=== PATIENT | female | born 1985 | race Caucasian/White ===

== ENCOUNTER 2018-08-15 12:04 | Emergency (ER) | payer SELFPAY ==
[~2018-08-15] VITALS: Ht 167.6 cm; Wt 71.7 kg
--- NOTE | 2018-08-15 12:32 | PHYS DOC ---
Past History Past Medical History: Kidney Infection Past Surgical History: Tubal ligation Additional Smoking Information: 07/12 PPD Alcohol Use: None Drug Use: None Adult General Chief Complaint Chief Complaint: FLANK PAIN HPI HPI 33-year-old female presents with flank pain. The patient woke up this morning with significant flank pain that radiated across her back. She has had increased urinary frequency and dysuria since this morning. She has not had this level of pain before. She has had urinary tract infections in the past. She did not feel symptomatic at all yesterday. She has no history of kidney stones. She denies trauma. She has not had a fever or chills at home. Review of Systems Review of Systems Constitutional: Denies fever or chills [] Eyes: Denies change in visual acuity, redness, or eye pain [] HENT: Denies nasal congestion or sore throat [] Respiratory: Denies cough or shortness of breath [] Cardiovascular: No additional information not addressed in HPI [] GI: Denies abdominal pain, nausea, vomiting, bloody stools or diarrhea [] : Dysuria[] Musculoskeletal: Flank pain[] Integument: Denies rash or skin lesions [] Neurologic: Denies headache, focal weakness or sensory changes [] Endocrine: Denies polyuria or polydipsia [] All other systems were reviewed and found to be within normal limits, except as documented in this note. Physical Exam Physical Exam Constitutional: Well developed, well nourished, no acute distress, non-toxic appearance. Appears to be in pain, constantly moving [] HENT: Normocephalic, atraumatic, bilateral external ears normal, oropharynx moist, no oral exudates, nose normal. [] Eyes: PERRLA, EOMI, conjunctiva normal, no discharge. [] Neck: Normal range of motion, no tenderness, supple, no stridor. [] Cardiovascular:Heart rate regular rhythm, no murmur [] Lungs & Thorax: Bilateral breath sounds clear to auscultation [] Abdomen: Bowel sounds normal, soft, no tenderness, no masses, no pulsatile masses. [] Skin: Warm, dry, no erythema, no rash. [] Back: CVA tenderness. [] Extremities: No tenderness, no cyanosis, no clubbing, ROM intact, no edema. [] Neurologic: Alert and oriented X 3, normal motor function, normal sensory function, no focal deficits noted. [] Psychologic: Affect anxious, in pain, judgement normal, mood normal. [] Current Patient Data Vital Signs Vital Signs Date Time Temp Pulse Resp B/P (MAP) Pulse Ox O2 Delivery O2 Flow Rate FiO2 08/15/18 12:13 112 22 98 Room Air EKG EKG [] Radiology/Procedures Radiology/Procedures [] Impressions: Examination: CT of the abdomen pelvis without contrast HISTORY: History of left flank pain COMPARISON: None available TECHNIQUE: Axial CT images of the abdomen pelvis were performed without contrast. Coronal and sagittal reformats are performed . Exposure: One or more of the following individualized dose reduction techniques were utilized for this examination: 1. Automated exposure control 2. Adjustment of the mA and/or kV according to patient size 3. Use of iterative reconstruction technique FINDINGS: The bibasilar lungs are clear. No evidence of free air identified in the abdomen. The evaluation of the solid organs is limited due to lack of IV contrast. The evaluation of bowel is limited lack of oral contrast. The visualized noncontrasted liver, spleen, adrenals grossly appears unremarkable. The gallbladder is mildly distended. The stomach is mildly distended. The visualized pancreas grossly appears unremarkable. The small bowel is nondilated. Appendix is normal. Feces and gas noted in the colon. The urinary bladder is mildly distended. Small amount of fluid identified in the endometrium of the uterus. Moderate left-sided hydronephrosis and proximal mild hydroureter identified with a calculus identified in the proximal left ureter measuring 4 mm. Small calcified pelvic phleboliths identified in the pelvis. No evidence of lytic bony destructive lesion. IMPRESSION: 1. 4 mm calculus identified in the proximal left ureter causing mild to moderate left-sided hydronephrosis and mild left hydroureter. 2. Small amount of fluid identified in the endometrium, nonspecific. Electronically signed by: Candido Winters MD (08/15/2018 12:56 PM) [place] [id number] DICTATED AND SIGNED BY: CANDIDO WINTERS MD DATE: 08/15/18 5001 CC: CARYN SIMMONS DO; PCP,NO Course & Med Decision Making Course & Med Decision Making Pertinent Labs and Imaging studies reviewed. (See chart for details) The patient has a UTI as well as a kidney stone and hydronephrosis. I will treat her in the ED with 2 g of Rocephin IV. I will consult urology. The patient has a normal blood pressure, white count of 10.1, and no fever. She is not septic. I discussed the case with the urology team and spoke with Freda the nurse practitioner. She has recommended transferring the patient to [place]. Discussed the patient with the hospitalist at [facility], Dr. Serrato and he has accepted the patient for transfer and admission. The patient strongly wishes to go by personal vehicle. She does not have insurance and cannot afford the ambulance bill. Given that she is hemodynamically stable, has no fever, and understands we will have her move her IV and a normal be placed later, I will allow her to go by personal vehicle. She is being driven by her significant other. [] Dragon Disclaimer Dragon Disclaimer This electronic medical record was generated, in whole or in part, using a voice recognition dictation system. Departure Departure: Impression: Primary Impression: Kidney stone on left side Additional Impressions: Hydronephrosis of left kidney Pyelonephritis Disposition: XFER SHT-TRM HOSP Condition: STABLE Referrals: PCP,NO (PCP) Problem Qualifiers CARYN SIMMONS DO Aug 15, 2018 12:32
[2018-08-15] MEDS ORDERED: KETOROLAC 30 MG/ML VIAL. IV ONE (12:45)
[2018-08-15] MEDS ORDERED: ONDANSETRON PF 4 MG/2 ML VIAL. IV ONE (12:45)
[2018-08-15 12:48] LABS: BASO # 0.1 x10^3/uL (0.0-0.2); BASO % 1 % (0-3); EOS # 0.4 x10^3/uL (0.0-0.7); EOS % 4 % (0-3); HEMATOCRIT 43.4 % (36.0-47.0); HEMOGLOBIN 14.4 g/dL (12.0-15.5); LYMPH # 2.5 x10^3/uL (1.0-4.8); LYMPH % 25 % (24-48); MEAN CORPUSCULAR HEMOGLOBIN 30 pg (25-35); MEAN CORPUSCULAR HGB CONC 33 g/dL (31-37); MEAN CORPUSCULAR VOLUME 89 fL (79-100); MONO # 1.1 x10^3/uL (0.0-1.1); MONO % 11 % (0-9); NEUT # 6.1 x10^3uL (1.8-7.7); NEUT % 60 % (31-73); PLATELET COUNT 380 x10^3/uL (140-400); RED BLOOD COUNT 4.87 x10^6/uL (3.50-5.40); RED CELL DISTRIBUTION WIDTH 13.6 % (11.5-14.5); WHITE BLOOD COUNT 10.1 x10^3/uL (4.0-11.0)
[2018-08-15 12:56] LABS: BILIRUBIN,URINE NEG (NEG); CLARITY,URINE TURBID; COLOR,URINE YELLOW; GLUCOSE,URINE NEG (NEG); NITRITE,URINE POS (NEG); UROBILINOGEN,URINE 0.2 mg/dL (0.2 mg/dL)
[2018-08-15 12:57] LABS: AMORPHOUS SEDIMENT,UR PRESENT /HPF; BACTERIA,URINE MANY /HPF (0-FEW); SQUAMOUS EPITHELIAL CELL,UR FEW /LPF
[2018-08-15 12:59] LABS: ALBUMIN 3.9 g/dL (3.4-5.0); ALBUMIN/GLOBULIN RATIO 1.1 (1.0-1.7); CALCIUM 9.1 mg/dL (8.5-10.1); CREATININE 0.9 mg/dL (0.6-1.0); GFR 72.1; TOTAL BILIRUBIN 0.2 mg/dL (0.2-1.0); TOTAL PROTEIN 7.4 g/dL (6.4-8.2)
--- NOTE | 2018-08-15 13:01 | RAD ---
Examination: CT of the abdomen pelvis without contrast HISTORY: History of left flank pain COMPARISON: None available TECHNIQUE: Axial CT images of the abdomen pelvis were performed without contrast. Coronal and sagittal reformats are performed . Exposure: One or more of the following individualized dose reduction techniques were utilized for this examination: 1. Automated exposure control 2. Adjustment of the mA and/or kV according to patient size 3. Use of iterative reconstruction technique FINDINGS: The bibasilar lungs are clear. No evidence of free air identified in the abdomen. The evaluation of the solid organs is limited due to lack of IV contrast. The evaluation of bowel is limited lack of oral contrast. The visualized noncontrasted liver, spleen, adrenals grossly appears unremarkable. The gallbladder is mildly distended. The stomach is mildly distended. The visualized pancreas grossly appears unremarkable. The small bowel is nondilated. Appendix is normal. Feces and gas noted in the colon. The urinary bladder is mildly distended. Small amount of fluid identified in the endometrium of the uterus. Moderate left-sided hydronephrosis and proximal mild hydroureter identified with a calculus identified in the proximal left ureter measuring 4 mm. Small calcified pelvic phleboliths identified in the pelvis. No evidence of lytic bony destructive lesion. IMPRESSION: 1. 4 mm calculus identified in the proximal left ureter causing mild to moderate left-sided hydronephrosis and mild left hydroureter. 2. Small amount of fluid identified in the endometrium, nonspecific. Electronically signed by: Candido Winters MD (08/15/2018 12:56 PM) [facility]
[2018-08-15] MEDS ORDERED: IV NORMAL SALINE 100ML 100 ML ONE (13:09)
[2018-08-15] MEDS ORDERED: IV NORMAL SALINE 1,000ML 1,000 ML IV ONE (13:30)
== END 2018-08-15 14:40 | disposition short-term general hospital (02) ==
LOC: ER 12:04
DX: N13.2 Hydronephrosis with renal and ureteral calculous obstruction (principal); N12 Tubulo-interstitial nephritis, not specified as acute or chronic; F17.200 Nicotine dependence, unspecified, uncomplicated; Z98.51 Tubal ligation status
CPT/HCPCS: 36415; 74176; 80053; 81001; 85025; 87086; 96365; 96375; 99285; J0696; J1885; J2405; 87186; J7030

== ENCOUNTER 2020-01-29 22:26 | Emergency (ER) | payer SELFPAY ==
[~2020-01-29] VITALS: Ht 167.6 cm; Wt 65.0 kg
--- NOTE | 2020-01-29 23:32 | RAD ---
EXAM: CHEST AP ONLY INDICATION: Reason: SOB, cough / Spl. Instructions: / History: . TECHNIQUE: Single view COMPARISON: Abdomen pelvis CT without IV contrast 08/15/2018. FINDINGS: The heart size is normal. The great vessels appear unremarkable. There is no hilar or mediastinal mass. The lungs are clear. There is no pleural effusion or pneumothorax. There are no significant osseous abnormalities. IMPRESSION: No active cardiopulmonary disease. Electronically signed by: Sarah Murray MD (01/29/2020 11:29 PM) [facility] [place]
[2020-01-29] MEDS ORDERED: ACETAMINOPHEN 325 MG TABLET PO ONE (23:45)
[2020-01-29] MEDS ORDERED: IV NORMAL SALINE 1,000ML 1,000 ML IV ONE (23:45)
[2020-01-30 00:14] LABS: BASO % 0 % (0-3); EOS # 0.1 x10^3/uL (0.0-0.7); EOS % 1 % (0-3); HEMATOCRIT 40.5 % (36.0-47.0); HEMOGLOBIN 13.3 g/dL (12.0-15.5); LYMPH # 1.2 x10^3/uL (1.0-4.8); LYMPH % 8 % (24-48); MEAN CORPUSCULAR HEMOGLOBIN 30 pg (25-35); MEAN CORPUSCULAR HGB CONC 33 g/dL (31-37); MEAN CORPUSCULAR VOLUME 90 fL (79-100); MONO # 1.8 x10^3/uL (0.0-1.1); MONO % 12 % (0-9); NEUT # 11.7 x10^3uL (1.8-7.7); NEUT % 79 % (31-73); PLATELET COUNT 268 x10^3/uL (140-400); RED BLOOD COUNT 4.49 x10^6/uL (3.50-5.40); RED CELL DISTRIBUTION WIDTH 13.8 % (11.5-14.5); WHITE BLOOD COUNT 14.8 x10^3/uL (4.0-11.0)
--- NOTE | 2020-01-30 00:15 | PHYS DOC ---
Past History Past Medical History: Kidney Infection Past Surgical History: Tubal ligation Alcohol Use: None Drug Use: None General Adult EDM: Chief Complaint: GENERALIZED BODY ACHES HPI: HPI: 34-year-old female presents with generalized body aches, vomiting, fever for last couple of days. She is concerned about COVID-19. She has no specific COVID-19 exposures. On arrival she did have a borderline fever of 100.3. She had multiple episodes of vomiting. Review of Systems: Review of Systems: Constitutional: Fever Eyes: Denies change in visual acuity HENT: Denies nasal congestion or sore throat Respiratory: Denies cough or shortness of breath Cardiovascular: Denies chest pain or edema GI: Nausea, vomiting. Denies abdominal pain, bloody stools or diarrhea : Denies dysuria Musculoskeletal: Denies back pain or joint pain Integument: Denies rash Neurologic: Denies headache, focal weakness or sensory changes Endocrine: Denies polyuria or polydipsia Lymphatic: Denies swollen glands Psychiatric: Denies depression or anxiety Heart Score: Risk Factors: Risk Factors: DM, Current or recent (<one month) smoker, HTN, HLP, family history of CAD, obesity. Risk Scores: Score 0 - 3: 2.5% MACE over next 6 weeks - Discharge Home Score 4 - 6: 20.3% MACE over next 6 weeks - Admit for Clinical Observation Score 7 - 10: 72.7% MACE over next 6 weeks - Early Invasive Strategies Current Medications: Current Meds: Current Medications Medications (Trade) Dose Ordered Sig/[facility] Start Time Stop Time Status Last Admin Dose Admin Acetaminophen (Tylenol) 650 mg 1X ONCE 01/29/20 23:45 01/29/20 23:46 DC 01/29/20 23:41 650 MG Sodium Chloride 1,000 ml @ 1,000 mls/hr 1X ONCE 01/29/20 23:45 01/30/20 00:44 01/29/20 23:36 1,000 MLS/HR Allergies: Allergies: Allergies Coded Allergies Type Severity Reaction Last Updated Verified No Known Allergies Allergy Unknown 08/15/18 Yes Physical Exam: PE: Constitutional: Well developed, well nourished, no acute distress, non-toxic appearance. [] HENT: Normocephalic, atraumatic, bilateral external ears normal, oropharynx moist, no oral exudates, nose normal. [] Eyes: PERRLA, EOMI, conjunctiva normal, no discharge. [] Neck: Normal range of motion, no tenderness, supple, no stridor. [] Cardiovascular:Heart rate regular rhythm, no murmur [] Lungs & Thorax: Bilateral breath sounds clear to auscultation [] Abdomen: Bowel sounds normal, soft, no tenderness, no masses, no pulsatile mas ses. [] Skin: Warm, dry, no erythema, no rash. [] Back: No tenderness, no CVA tenderness. [] Extremities: No tenderness, no cyanosis, no clubbing, ROM intact, no edema. [] Neurologic: Alert and oriented X 3, normal motor function, normal sensory function, no focal deficits noted. [] Psychologic: Affect normal, judgement normal, mood normal. [] EKG: EKG: [] Radiology/Procedures: Radiology/Procedures: [] Impressions: EXAM: CHEST AP ONLY INDICATION: Reason: SOB, cough / Spl. Instructions: / History: . TECHNIQUE: Single view COMPARISON: Abdomen pelvis CT without IV contrast 08/15/2018. FINDINGS: The heart size is normal. The great vessels appear unremarkable. There is no hilar or mediastinal mass. The lungs are clear. There is no pleural effusion or pneumothorax. There are no significant osseous abnormalities. IMPRESSION: No active cardiopulmonary disease. Electronically signed by: Lala Murray MD (01/29/2020 11:29 PM) [facility] [place] DICTATED AND SIGNED BY: LALA MURRAY MD DATE: 01/29/20 [id number] CC: CARYN SIMMONS DO; PCP,NO ~ Course & Med Decision Making: Course & Med Decision Making Pertinent Labs and Imaging studies reviewed. (See chart for details) The patient's labs are unremarkable. Her chest x-ray is negative for acute findings. We have given her Zofran and fluids. She is feeling better at this time. These could be COVID-19 symptoms or she could does have a viral GI illness. She has no specific COVID-19 exposures. I have recommended that she isolate herself until she is symptom-free for 3 days and/or gets a negative test result. I will discharge her with Zofran ODT. She is stable for discharge at this time. [] Dragon Disclaimer: Dragon Disclaimer: This electronic medical record was generated, in whole or in part, using a voice recognition dictation system. Departure Departure: Impression: Primary Impression: Nausea and vomiting Qualified Codes: R11.2 - Nausea with vomiting, unspecified Additional Impression: Counseled about COVID-19 virus infection Disposition: 01 HOME/RESIDENCE PRIOR TO ADM Condition: STABLE Referrals: PCPSARAH (PCP) Patient Instructions: Nausea and Vomiting, [id number] Additional Instructions: You have been tested for or diagnosed with COVID-19. It is an infection caused by a new type of coronavirus. COVID-19 will cause cold-like or mild flu symptoms in most. It can cause more severe symptoms like problems breathing in some. There is no treatment for COVID-19. The body will clear the infection over time. Self-care will help to ease discomfort. Steps to Take: Self-Care Rest as needed. Healthy habits may help you feel better. Steps include: Choose healthy foods including fruits and vegetables. Drink water throughout the day. Get plenty of sleep each night. If you smoke, try to quit. It may ease breathing. Avoid alcohol. Keep Others Healthy The virus can spread to others. Droplets are released every time you sneeze or cough. The droplets can get into the mouth, nose, or eyes of people near you and lead to infection. To lower the chances of spreading COVID-19 to others: Stay at home until your doctor has said it is safe to leave. If you tested positive this will mean staying isolated until both of the following are true: At least 7 days have passed since the start of illness. You are free of fever for at least 72 hours without the use of medicine. During this time: - Avoid public areas, events, or transportation. Do not return to work or school until your doctor has said it is safe to do so. - Call ahead if you need to go to a medical center. Let them know you may have COVID-19. It will help them guide you where to go. They may also ask you to wear a facemask when you come to the office. - If you call for emergency medical services, let them know you may have COVID- 19. While at home: - Try to avoid close contact with others. Stay about 6 feet away. - If possible, spend most of your time in a separate room from others. - Use a face mask if you will be in close contact with others such as sharing a room or vehicle. - Have someone wipe down common surfaces in the home. Use household info print press operator every day on areas like doorknobs, counters, or sinks. - Cough or sneeze into a tissue. Throw the tissue away right after use. If a tissue is not available, cough or sneeze into your elbow. - Wash your hands often. Wash them after sneezing or coughing. Use soap and water and wash for at least 20 seconds. Alcohol based hand cooker cleaner can be used if soap and water is not available. - Do not prepare food for others. Avoid sharing personal items like forks, spoons, or toothbrushes. - Avoid close contact with pets while you are sick. There is no evidence of the virus passing to pets. This is a safety step until more is known about this virus. Isolation can be frustrating. Social interaction can help. Keep in touch with friends and family through phone and tech options. You can still interact with others in your home, just keep a safe distance of about 6 feet. Follow-up: Your doctors office will check in with you to see if there are any changes in your health. You may be asked to keep track of symptoms to share with them. They will also let you know when you are clear to be in public again. Problems to Look Out For: Contact your doctor if your recovery is not going as you expect. Get emergency care if you have problems such as: - Trouble breathing - Nonstop chest pain or pressure - Changes in awareness, confusion, or problems waking - Lips or face have bluish color - Worsening of symptoms If you think you have an emergency, call for emergency medical services right away. As taken from [facility] Health Scripts Ondansetron (ONDANSETRON ODT) 4 Mg Tab.rapdis 1 TAB PO PRN Q6-8HRS PRN for VOMITING, #16 TAB Prov: CARYN SIMMONS DO 01/30/20 Justification of Admission: Justification of Admission: Justification of Admission Dx: N/A CARYN SIMMONS DO Jan 30, 2020 00:15
[2020-01-30 00:19] LABS: BACTERIA,URINE MOD /HPF (0-FEW); BILIRUBIN,URINE NEG (NEG); CLARITY,URINE HAZY; COLOR,URINE YELLOW; GLUCOSE,URINE NEG (NEG); NITRITE,URINE NEG (NEG); SQUAMOUS EPITHELIAL CELL,UR FEW /LPF; WBC,URINE >40 /HPF (0-4)
[2020-01-30 00:22] LABS: CALCIUM 8.3 mg/dL (8.5-10.1); CREATININE 0.9 mg/dL (0.6-1.0); GFR 71.7; POTASSIUM 3.5 mmol/L (3.5-5.1)
[2020-01-30 00:27] LABS: ALBUMIN 3.5 g/dL (3.4-5.0); ALBUMIN/GLOBULIN RATIO 0.9 (1.0-1.7); TOTAL BILIRUBIN 0.4 mg/dL (0.2-1.0); TOTAL PROTEIN 7.3 g/dL (6.4-8.2)
[2020-01-30] MEDS ORDERED: ONDA4TAB12 PO (00:33)
[2020-01-30] MEDS ORDERED: NITR100C62 PO (02:14)
[2020-01-30 02:15] VITALS: BP 95/50
--- NOTE | 2020-01-30 06:24 | EKG ---
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
--- NOTE | 2020-02-04 13:15 | NUR ---
IP: attempt to notify of COVID result, unable to leave message.
== END 2020-01-30 02:15 | disposition home or self-care (01) ==
LOC: ER 22:26
DX: R50.9 Fever, unspecified (principal); M79.10 Myalgia, unspecified site; R11.2 Nausea with vomiting, unspecified; Z20.828 Contact with and (suspected) exposure to other viral communicable diseases
CPT/HCPCS: 36415; 71045; 80053; 81001; 83605; 85025; 87040; 87086; 93005; 96360; 96361; 99285; J7030; U0003; 87077; 87186

== ENCOUNTER 2020-02-15 05:29 | Emergency (ER) | payer SELFPAY ==
[~2020-02-15] VITALS: Ht 167.6 cm; Wt 65.0 kg
[~2020-02-15 05:29] MED LIST: NITR100C62 PO; ONDA4TAB12 PO
[2020-02-15] MEDS ORDERED: LIDOCAINE 2% 20 ML VIAL. ONE (05:47)
--- NOTE | 2020-02-15 05:49 | PHYS DOC ---
Past History Past Medical History: Kidney Infection Past Surgical History: Tubal ligation Alcohol Use: None Drug Use: None General Adult EDM: Chief Complaint: SKIN PROBLEM HPI: HPI: Patient is a 34 year old female who presents for evaluation of 2 skin abscesses. She has a flat developing one on her upper abdomen and a fluctuant one in her right armpit. Symptoms been progressing for the past several days. There is no reported fevers and chills. Patient is not toxic appearing. Patient states she tried to squeeze the abscess on her abdomen more than once and it may have made it worse Review of Systems: Review of Systems: Constitutional: Denies fever or chills Eyes: Denies change in visual acuity HENT: Denies nasal congestion or sore throat Respiratory: Denies cough or shortness of breath Cardiovascular: Denies chest pain or edema GI: Denies abdominal pain, nausea, vomiting, bloody stools or diarrhea : Denies dysuria Musculoskeletal: Denies back pain or joint pain Integument: Denies rash, multiple skin abscesses Neurologic: Denies headache, focal weakness or sensory changes Endocrine: Denies polyuria or polydipsia Lymphatic: Denies swollen glands Psychiatric: Denies depression or anxiety Heart Score: Risk Factors: Risk Factors: DM, Current or recent (<one month) smoker, HTN, HLP, family history of CAD, obesity. Risk Scores: Score 0 - 3: 2.5% MACE over next 6 weeks - Discharge Home Score 4 - 6: 20.3% MACE over next 6 weeks - Admit for Clinical Observation Score 7 - 10: 72.7% MACE over next 6 weeks - Early Invasive Strategies Allergies: Allergies: Allergies Coded Allergies Type Severity Reaction Last Updated Verified No Known Allergies Allergy Unknown 08/15/18 Yes Physical Exam: PE: Constitutional: Well developed, well nourished, mild acute distress, non-toxic appearance. [] HENT: Normocephalic, atraumatic, bilateral external ears normal, oropharynx moist, no oral exudates, nose normal. [] Eyes: PERRL, EOMI, conjunctiva normal, no discharge. [] Neck: Normal range of motion, no tenderness. [] Cardiovascular:Heart rate regular rhythm, no murmur [] Lungs & Thorax: Bilateral breath sounds clear to auscultation [] Abdomen: Bowel sounds normal, soft, no tenderness, no masses. [] Skin: Warm, dry, no rash, flat 2 cm abscess upper abdomen, 2 cm fluctuant abscess right axilla. [] Back: No tenderness. [] Extremities: No tenderness, no cyanosis, ROM intact, no edema. [] Neurologic: Alert and oriented, normal motor function, normal sensory function, no focal deficits noted. [] Psychologic: Affect normal, judgement normal, mood anxious. [] EKG: EKG: [] Radiology/Procedures: Radiology/Procedures: [] Course & Med Decision Making: Course & Med Decision Making Pertinent Labs and Imaging studies reviewed. (See chart for details) [] Dragon Disclaimer: [employer] Disclaimer: This electronic medical record was generated, in whole or in part, using a voice recognition dictation system. Departure Departure: Impression: Primary Impression: Abscess of axilla, right Disposition: 01 HOME/RESIDENCE PRIOR TO ADM Condition: STABLE Referrals: PCP,NO (PCP) Patient Instructions: Abscess, Care After Additional Instructions: Warm compresses for the flat abscess on your abdomen, for your right armpit I would go home and rinse it once again with a hot shower. Take the antibiotic as directed. Do not squeeze those wounds as it can make them worse, have your doctor recheck wound in the next several days Scripts Sulfamethoxazole/Trimethoprim (BACTRIM 400-80 MG TABLET) 1 Each Tablet 1 TAB PO BID for abscess for 7 Days, #14 TAB 0 Refills Prov: SHIRA FRAUSTO DO 02/15/20 Justification of Admission: Justification of Admission: Justification of Admission Dx: N/A Incision and Drainage Incision and Drainage : Site: right abscess Blade Size: 11 I & D Procedure: betadine prep, sterile drapes applied, sterile dressing applied Progress Site prepped with Betadine and then cleaned with saline. Local anesthesia obtained by lidocaine 3 mL's of 2% no epinephrine. An 11 blade was used to open the wound and about 3 cc of pus obtained. SHIRA FRAUSTO DO Feb 15, 2020 05:49
[2020-02-15 05:59] VITALS: BP 123/44
[2020-02-15] MEDS ORDERED: IBUPROFEN 600 MG TABLET. PO ONE (06:00)
[2020-02-15] MEDS ORDERED: SULF1TAB23 PO (06:02)
[2020-02-15] MEDS ORDERED: LIDOCAINE 2% 20 ML VIAL. IJ ONE (06:15)
== END 2020-02-15 06:23 | disposition home or self-care (01) ==
LOC: ER 05:29
DX: L02.411 Cutaneous abscess of right axilla (principal); L02.211 Cutaneous abscess of abdominal wall
CPT/HCPCS: 10060; 99283; J2001

== ENCOUNTER 2020-06-29 12:50 | Emergency (ER) | payer SELFPAY ==
[~2020-06-29] VITALS: Ht 165.1 cm; Wt 74.3 kg
[~2020-06-29 12:50] MED LIST changes: +SULF1TAB23 PO
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
--- NOTE | 2020-06-29 14:14 | RAD ---
PROCEDURE: XR HAND_RIGHT 3 VIEWS, XR EXAM OF ANKLE_LEFT 3V STUDY DATE: 06/29/2020 CLINICAL INDICATION / HISTORY: Reason: pain after injury / Spl. Instructions: / History: . TECHNIQUE: PA, lateral and oblique views of the right hand. COMPARISON: None FINDINGS: Acute distal right fourth metacarpal neck fracture with minimal apex dorsal angulation is i dentified. Otherwise no other fracture or dislocation is identified. The bone density is normal. The joint spaces are maintained, and there are no erosions to suggest an inflammatory arthropathy. The so ft tissues are unremarkable. IMPRESSION: Acute distal right fourth metacarpal neck fracture. PROCEDURE: XR HAND_RIGHT 3 VIEWS, XR EXAM OF ANKLE_LEFT 3V STUDY DATE: 06/29/2020 CLINICAL INDICATION / HISTORY: Reason: pain after injury / Spl. Instructions: / History: . TECHNIQUE: Left ankle 3 views. COMPARISON: None FINDINGS: The ankle mortise is approximated, and the talar dome is unremarkable. The joint space widt hs are maintained. No fracture or dislocation is identified. No soft tissue swelling is appreciated. IMPRESSION: No acute osseous abnormality. Electronically signed by: Sarah Murray MD (06/29/2020 2:12 PM) [id number]
[2020-06-29 14:21] VITALS: BP 97/73
== END 2020-06-29 14:22 | disposition home or self-care (01) ==
LOC: ER 12:50
DX: S62.334A Displaced fracture of neck of fourth metacarpal bone, right hand, initial encounter for closed fracture (principal); S96.812A Strain of other specified muscles and tendons at ankle and foot level, left foot, initial encounter; L53.9 Erythematous condition, unspecified; Z98.51 Tubal ligation status; Y08.89XA Assault by other specified means, initial encounter; Y93.89 Activity, other specified; Y92.89 Other specified places as the place of occurrence of the external cause; Y99.8 Other external cause status
CPT/HCPCS: 29125; 29515; 73130; 73610; 99284

== ENCOUNTER 2020-09-15 12:37 | Emergency (ER) | payer SELFPAY ==
[2020-09-15] MEDS ORDERED: IV NORMAL SALINE 1,000ML 1,000 ML IV ONE (13:15)
[2020-09-15] MEDS ORDERED: DICYCLOMINE 20 MG/2 ML VIAL. IM ONE (13:15)
[2020-09-15] MEDS ORDERED: ONDANSETRON PF 4 MG/2 ML VIAL. IVP ONE (13:15)
[2020-09-15] MEDS ORDERED: ONDA4TAB7 PO (16:23)
== END 2020-09-15 12:40 | disposition left against medical advice (07) ==
LOC: ER 12:37
DX: R11.2 Nausea with vomiting, unspecified (principal); Z53.21 Procedure and treatment not carried out due to patient leaving prior to being seen by health care provider

== ENCOUNTER 2020-09-15 13:48 | Emergency (ER) | payer SELFPAY ==
[~2020-09-15] VITALS: Ht 167.6 cm; Wt 70.0 kg
[2020-09-15] MEDS ORDERED: ONDANSETRON PF 4 MG/2 ML VIAL. IVP ONE ×2 (14:30→16:45)
[2020-09-15] MEDS ORDERED: MORPHINE SULFATE 4 MG/ML DISP.SYRIN. IV ONE ×2 (14:30→17:00)
[2020-09-15] MEDS ORDERED: IV NORMAL SALINE 1,000ML 1,000 ML IV ONE (14:30)
--- NOTE | 2020-09-15 14:42 | EKG ---
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
[2020-09-15 14:47] LABS: BASO % 0 % (0-3); EOS # 0.2 x10^3/uL (0.0-0.7); EOS % 1 % (0-3); HEMATOCRIT 46.1 % (36.0-47.0); HEMOGLOBIN 15.2 g/dL (12.0-15.5); LYMPH # 2.8 x10^3/uL (1.0-4.8); LYMPH % 18 % (24-48); MEAN CORPUSCULAR HEMOGLOBIN 29 pg (25-35); MEAN CORPUSCULAR HGB CONC 33 g/dL (31-37); MEAN CORPUSCULAR VOLUME 89 fL (79-100); MONO # 1.6 x10^3/uL (0.0-1.1); MONO % 10 % (0-9); NEUT # 10.9 x10^3uL (1.8-7.7); NEUT % 70 % (31-73); PLATELET COUNT 333 x10^3/uL (140-400); RED BLOOD COUNT 5.16 x10^6/uL (3.50-5.40); RED CELL DISTRIBUTION WIDTH 13.7 % (11.5-14.5); WHITE BLOOD COUNT 15.5 x10^3/uL (4.0-11.0)
[2020-09-15 14:59] LABS: ALBUMIN/GLOBULIN RATIO 1.1 (1.0-1.7); CALCIUM 9.3 mg/dL (8.5-10.1); CREATININE 0.9 mg/dL (0.6-1.0); GFR 71.3; TOTAL BILIRUBIN 0.4 mg/dL (0.2-1.0); TOTAL PROTEIN 7.7 g/dL (6.4-8.2)
--- NOTE | 2020-09-15 15:05 | RAD ---
EXAM: Chest, single view. HISTORY: Epigastric pain. COMPARISON: 01/29/2020 FINDINGS: A frontal view of the chest is obtained. There is no infiltrate, pleural effusion or pneumo thorax. The heart is normal in size. IMPRESSION: No acute pulmonary finding. Electronically signed by: Ambar Chopra MD (09/15/2020 3:02 PM) [id number]
[2020-09-15 15:09] LABS: BACTERIA,URINE 0 /HPF (0-FEW); BILIRUBIN,URINE MOD (NEG); CLARITY,URINE CLEAR; COLOR,URINE STRAW; GLUCOSE,URINE NEG (NEG); NITRITE,URINE NEG (NEG); RBC,URINE 0 /HPF (0-2); WBC,URINE 0 /HPF (0-4)
--- NOTE | 2020-09-15 15:14 | RAD ---
EXAMINATION: CT ABDOMEN+PELVIS WO (CT ABDOMEN/PELVIS WITHOUT IV CONTRAST) CLINICAL HISTORY: Abdominal pain TECHNIQUE: Non-IV contrast imaging of the abdomen and pelvis was performed using standard technique, scanning from just above the dome of the diaphragm to the symphysis pubis. Unenhanced imaging is vieyra ited for the evaluation of some intra-abdominal and pelvic pathology. CT Dose Reduction Employed: One or more of the following individualized dose reduction techniques wer e utilized for this examination: 1. Automated exposure control 2. Adjustment of the mA and/or kV ac cording to patient size 3. Use of iterative reconstruction technique. COMPARISON: 08/15/2018 FINDINGS: Partially visualized heart and lung bases unremarkable. Liver, gallbladder, pancreas, spleen, and adrenal glands unremarkable. Small nodular irregularity along the posteromedial aspect of the upper pole the left kidney, similar to prior study but incompletely evaluated on limited noncontrast evaluation. Right kidney unremarkabl e. Decompressed urinary bladder suboptimally evaluated. Uterus and adnexa unremarkable. Borderline dilated loops of proximal and distal small bowel measuring up to 2.5 cm in diameter with n o definitive evidence of obstruction. Appendix not definitively visualized. No abdominal aortic or iliac artery aneurysm. No lymphadenopathy. No evidence of acute osseous abnormality. IMPRESSION: Borderline dilated loops of small bowel as described, nonspecific and could be related to enteritis o r mild small bowel ileus. Nonspecific small nodular irregularity in the left kidney, incompletely evaluated. Nonemergent renal ultrasound could be obtained for further evaluation if indicated. Nonvisualized appendix. Electronically signed by: Kranthi Winslow DO (09/15/2020 3:11 PM) [id number]
--- NOTE | 2020-09-15 15:14 | PHYS DOC ---
Past History Past Medical History: Asthma Past Surgical History: Tonsillectomy, Tubal ligation Alcohol Use: Occasionally Drug Use: None General Adult EDM: Chief Complaint: NAUSEA/VOMITING/DIARRHEA HPI: HPI: Patient is a 35-year-old female who presents with generalized abdominal pain, nausea/vomiting/diarrhea for 4 days. Patient also reporting a fever. Patient denies taking anything at home for pain or nausea. Patient states that she is unable to keep anything down. Patient states that she was tested for Covid twice and was negative both times. Patient denies any medical history. Review of Systems: Review of Systems: Constitutional: Reports hot and cold chills Eyes: Denies change in visual acuity HENT: Denies nasal congestion or sore throat Respiratory: Denies cough or shortness of breath Cardiovascular: Denies chest pain or edema GI: Reports abdominal pain, nausea, vomiting, diarrhea : Denies dysuria Musculoskeletal: Denies back pain or joint pain Integument: Denies rash Neurologic: Denies headache, focal weakness or sensory changes Endocrine: Denies polyuria or polydipsia Lymphatic: Denies swollen glands Psychiatric: Denies depression or anxiety Current Medications: Current Meds: Current Medications Medications (Trade) Dose Ordered Sig/David Start Time Stop Time Status Last Admin Dose Admin Morphine Sulfate (Morphine 4mg Syringe) 4 mg 1X ONCE 09/15/20 14:30 09/15/20 14:31 DC 09/15/20 14:37 4 MG Ondansetron HCl (Zofran) 4 mg 1X ONCE 09/15/20 14:30 09/15/20 14:31 DC 09/15/20 14:36 4 MG Sodium Chloride 1,000 ml @ 1,000 mls/hr 1X ONCE 09/15/20 14:30 09/15/20 15:29 09/15/20 14:38 1,000 MLS/HR Allergies: Allergies: Allergies Coded Allergies Type Severity Reaction Last Updated Verified No Known Allergies Allergy Unknown 09/15/20 Yes Physical Exam: PE: Constitutional: Well developed, well nourished, no acute distress, non-toxic appearance. [] HENT: Normocephalic, atraumatic, bilateral external ears normal, oropharynx moist, no oral exudates, nose normal. [] Eyes: PERRLA, EOMI, conjunctiva normal, no discharge. [] Neck: Normal range of motion, no tenderness, supple, no stridor. [] Cardiovascular:Heart rate regular rhythm, no murmur [] Lungs & Thorax: Bilateral breath sounds clear to auscultation [] Abdomen: Bowel sounds normal, soft, no tenderness, no masses, no pulsatile masses. [] Skin: Warm, dry, no erythema, no rash. [] Back: No tenderness, no CVA tenderness. [] Extremities: No tenderness, no cyanosis, no clubbing, ROM intact, no edema. [] Neurologic: Alert and oriented X 3, normal motor function, normal sensory function, no focal deficits noted. [] Psychologic: Affect normal, judgement normal, mood normal. [] Current Patient Data: Labs: Laboratory Tests Test 09/15/20 14:36 09/15/20 14:37 POC Urine HCG, Qualitative hcg negative (Negative) White Blood Count 15.5 x10^3/uL (4.0-11.0) H Red Blood Count 5.16 x10^6/uL (3.50-5.40) Hemoglobin 15.2 g/dL (12.0-15.5) Hematocrit 46.1 % (36.0-47.0) Mean Corpuscular Volume 89 fL (79-100) Mean Corpuscular Hemoglobin 29 pg (25-35) Mean Corpuscular Hemoglobin Concent 33 g/dL (31-37) Red Cell Distribution Width 13.7 % (11.5-14.5) Platelet Count 333 x10^3/uL (140-400) Neutrophils (%) (Auto) 70 % (31-73) Lymphocytes (%) (Auto) 18 % (24-48) L Monocytes (%) (Auto) 10 % (0-9) H Eosinophils (%) (Auto) 1 % (0-3) Basophils (%) (Auto) 0 % (0-3) Neutrophils # (Auto) 10.9 x10^3uL (1.8-7.7) H Lymphocytes # (Auto) 2.8 x10^3/uL (1.0-4.8) Monocytes # (Auto) 1.6 x10^3/uL (0.0-1.1) H Eosinophils # (Auto) 0.2 x10^3/uL (0.0-0.7) Basophils # (Auto) 0.0 x10^3/uL (0.0-0.2) Platelet Estimate Pending Sodium Level 142 mmol/L (136-145) Potassium Level 3.0 mmol/L (3.5-5.1) L Chloride Level 101 mmol/L (98-107) Carbon Dioxide Level 28 mmol/L (21-32) Anion Gap 13 (6-14) Blood Urea Nitrogen 10 mg/dL (7-20) Creatinine 0.9 mg/dL (0.6-1.0) Estimated GFR (Cockcroft-Gault) 71.3 BUN/Creatinine Ratio 11 (6-20) Glucose Level 97 mg/dL (70-99) Calcium Level 9.3 mg/dL (8.5-10.1) Total Bilirubin 0.4 mg/dL (0.2-1.0) Aspartate Amino Transferase (AST) 13 U/L (15-37) L Alanine Aminotransferase (ALT) 31 U/L (14-59) Alkaline Phosphatase 82 U/L (46-116) Total Protein 7.7 g/dL (6.4-8.2) Albumin 4.0 g/dL (3.4-5.0) Albumin/Globulin Ratio 1.1 (1.0-1.7) Lipase 101 U/L (73-393) Vital Signs: Vital Signs Date Time Temp Pulse Resp B/P (MAP) Pulse Ox O2 Delivery O2 Flow Rate FiO2 09/15/20 14:37 16 09/15/20 13:58 97.0 86 134/77 (96) 97 Room Air EKG: EKG: [] Radiology/Procedures: Radiology/Procedures: []EXAM: Chest, single view. HISTORY: Epigastric pain. COMPARISON: 01/29/2020 FINDINGS: A frontal view of the chest is obtained. There is no infiltrate, ple ural effusion or pneumothorax. The heart is normal in size. IMPRESSION: No acute pulmonary finding. Electronically signed by: Ambar Chopra MD (09/15/2020 3:02 PM) [id number] Heart Score: C/O Chest Pain: No Risk Factors: Risk Factors: DM, Current or recent (<one month) smoker, HTN, HLP, family history of CAD, obesity. Risk Scores: Score 0 - 3: 2.5% MACE over next 6 weeks - Discharge Home Score 4 - 6: 20.3% MACE over next 6 weeks - Admit for Clinical Observation Score 7 - 10: 72.7% MACE over next 6 weeks - Early Invasive Strategies Course & Med Decision Making: Course & Med Decision Making Pertinent Labs and Imaging studies reviewed. (See chart for details) CT of abdomen negative for obstruction. Patient given morphine and Zofran. Patient symptoms have resolved at this time. Patient sent home with prescription for Zofran and Bentyl. Patient passed p.o. challenge prior to leaving the emergency room. Advance diet as tolerated at home. Patient instructed to return to the emergency room with worsening symptoms or concerns. Patient to take ibuprofen for pain and fever. Sherie Disclaimer: Sherie Disclaimer: This electronic medical record was generated, in whole or in part, using a voice recognition dictation system. Departure Departure: Impression: Primary Impression: Abdominal pain Qualified Codes: R10.84 - Generalized abdominal pain Disposition: 01 DC HOME SELF CARE/HOMELESS Condition: STABLE Referrals: PCP,SARHA (PCP) Patient Instructions: Abdominal Pain Additional Instructions: You were seen in the emergency room for abdominal pain, nausea, vomiting, diarrhea. Your symptoms have resolved I will to discharge from emergency room. I am sending you home with a prescription for Zofran for nausea. You can take ibuprofen at home for pain. Please return to emergency room with worsening symptoms or concerns. EMERGENCY DEPARTMENT GENERAL DISCHARGE INSTRUCTIONS Thank you for coming to [facility] (ED) today and trusting us with you care. We trust that you had a positivie experience in our Emergency Department. If you wish to speak to the department management, you may call the director at [phone]. YOUR FOLLOW UP INSTRUCTIONS ARE FOLLOWS: 1. Do you have a private Doctor? If you do not have a private doctor, please ask for a resource list of physicians or clinics that may be able to assist you with follow up care. 2. The Emergency Physician has interpreted your x-rays. The X-Ray specialist will also review them. If there is a change in the findings, you will be notified in 48 hours when at all possible. 3. A lab test or culture has been done, your results will be reviewed and you will be notified if you need a change in treatment. ADDITIONAL INSTRUCTIONS AND INFORMATION: 1. Your care today has been supervised by a physician who is specially trained in emergency care. Many problems require more than one evaluation for a complete diagnosis and treatment. We recommend that you schedule your follow up appointment as recommended to ensure complete treatment of you illness or injury. If you are unable to obtain follow up care and continue to have a problem, or if your condition worsens, we recommend that you return to the ED. 2. We are not able to safely determine your condition over the phone nor are we able to give sound medical advice over the phone. For these safety reasons, if you call for medical advice we will ask you to come to the ED for further evaluation. 3. If you have any questions regarding these discharge instructions please call the ED at [phone]. SAFETY INFORMATION: In the interest of safety, wellness, and injury prevention; we encourage you to wear your sealbelt, if you smoke; quite smoking, and we encourage family to use a protective helmet for bicycling and other sporting events that present an increased risk for head injury. IF YOUR SYMPTOMS WORSEN OR NEW SYMPTOMS DEVELOP, OR YOU HAVE CONCERNS ABOUT YOUR CONDITION; OR IF YOUR CONDITION WORSENS WHILE YOU ARE WAITING FOR YOUR FOLLOW UP APPOINTMENT; EITHER CONTACT YOUR PRIMARY CARE DOCTOR, THE PHYSICIAN WHOSE NAME AND NUMBER YOU WERE GIVEN, OR RETURN TO THE ED IMMEDIATELY. Scripts Ondansetron Hcl (ZOFRAN) 4 Mg Tablet 4 MG PO TID PRN for PAIN for 7 Days, #21 TAB Prov: MEGAN MIRAMONTES APRN 09/15/20 MEGAN MIRAMONTES APRN Sep 15, 2020 15:14
[2020-09-15] MEDS ORDERED: ONDA4TAB7 PO (16:23)
[2020-09-15 16:45] VITALS: BP 130/73
[2020-09-15 21:11] LABS: % EOS 1 % (0-5); % LYMPHS 16 % (24-48); % MONOS 8 % (0-10); % SEGS 75 % (35-66); PLT ESTIMATE ADEQUATE (ADEQUATE)
== END 2020-09-15 16:52 | disposition home or self-care (01) ==
LOC: ER 13:48
DX: R10.84 Generalized abdominal pain (principal); R11.2 Nausea with vomiting, unspecified; R19.7 Diarrhea, unspecified; R50.9 Fever, unspecified; J45.909 Unspecified asthma, uncomplicated; Z98.51 Tubal ligation status; Z90.89 Acquired absence of other organs
CPT/HCPCS: 36415; 71045; 74176; 80053; 81001; 81025; 83690; 85007; 85025; 93005; 96361; 96374; 96375; 96376; 99285; J2270; J2405; J7030

== ENCOUNTER 2020-10-16 14:05 | Emergency (ER) | payer SELFPAY ==
[~2020-10-16] VITALS: Ht 167.6 cm; Wt 70.0 kg
[~2020-10-16 14:05] MED LIST changes: +ONDA4TAB7 PO
--- NOTE | 2020-10-16 14:38 | PHYS DOC ---
Past History Past Medical History: Asthma (YASMINE VELASQUEZ APRN) Past Surgical History: Tonsillectomy, Tubal ligation (YASMINE VELASQUEZ APRN) Alcohol Use: Occasionally Drug Use: None (YASMINE VELASQUEZ APRN) Adult General Chief Complaint Chief Complaint: NAUSEA/VOMITING/DIARRHEA HPI HPI Patient is a 35-year-old female presents to the emergency department complaining of nausea and vomiting since noon today. Patient complains of pain in her epigastric area that started around noon with a sudden onset of nausea and vomiting, patient states she has vomited several times noting food particles and water in her vomitus, denies bloody vomitus. Patient states she started taking penicillin for dental caries as directed by her dentist, is on day 2 of a 10-day regimen, denies any allergy to penicillin however does not recall being on penicillin in the past. Patient denies any chest pain, shortness of breath, diarrhea or constipation. Patient denies cough or congestion. Patient denies any numbness or tingling to her extremities. Patient denies any visual deficits, headaches, recent fever or chills. Patient states she started her menstrual cycle today. Patient complains of a 10/10 on a 1-10 pain scale in her abdomen. Patient denies any diaphoretic episodes. Patient denies any other recent illnesses, stating no one else living in her home is having the same symptoms that she. (YASMINE VELASQUEZ APRN) Review of Systems Review of Systems 14 body systems of review of systems have been reviewed. See HPI for pertinent positives and negative responses, otherwise all other systems are negative, nonpertinent or noncontributory. (YASMINE VELASQUEZ APRN) Current Medications Current Medications Current Medications Medications (Trade) Dose Ordered Sig/David Start Time Stop Time Status Last Admin Dose Admin Dexamethasone Sodium Phosphate (Decadron) 10 mg 1X ONCE 10/16/20 14:45 10/16/20 14:46 UNV Diphenhydramine HCl (Benadryl) 25 mg 1X ONCE 10/16/20 14:45 10/16/20 14:46 UNV Famotidine (Pepcid Vial) 40 mg 1X ONCE 10/16/20 14:45 10/16/20 14:46 UNV Ondansetron HCl (Zofran) 4 mg 1X ONCE 10/16/20 14:45 10/16/20 14:46 UNV Sodium Chloride 1,000 ml @ 1,000 mls/hr 1X ONCE 10/16/20 14:45 10/16/20 15:44 UNV (YASMINE VELASQUEZ APRN) Allergies Allergies Allergies Coded Allergies Type Severity Reaction Last Updated Verified No Known Allergies Allergy Unknown 09/15/20 Yes (YASMINE VELASQUEZ APRN) Physical Exam Physical Exam Constitutional: Well developed, well nourished, no acute distress, non-toxic appearance. Patient anxious, vomiting and vomitus bag during physical examination. Appears to be having acute allergic reaction. HENT: Normocephalic, atraumatic, bilateral external ears normal, oropharynx moist, no oral exudates, nose normal. Oropharynx moist, pink, no infectious process appreciated, no laryngeal swelling, patient speaking in normal voice tones, no airway distress appreciated. No lymphadenopathy of the head or neck appreciated. Patient has marked dental caries. No trismus, no drooling appreciated. Eyes: PERRLA, EOMI, conjunctiva normal, no discharge. Neck: Normal range of motion, no tenderness, supple, no stridor. No meningismus signs, no nuchal rigidity, no midline spinal tenderness. Cardiovascular:Heart rate regular rhythm, no murmur, heart sounds S1-S2, heart rate tachycardic during physical exam. Distal cap refill less than 2 seconds, no cyanosis appreciated. Lungs & Thorax: Bilateral breath sounds clear to auscultation all lung spangler, no adventitious lung sounds appreciated. Patient is in no respiratory distress. Abdomen: Bowel sounds normal, soft, no tenderness, no masses, no pulsatile masses. Skin: Warm, dry, no erythema, no rash. Mild erythema on face, neck, ears, anterior chest without raised urticaria or complained pruritus. Back: No tenderness, no CVA tenderness. Extremities: No tenderness, no cyanosis, no clubbing, ROM intact, no edema. Neurologic: Alert and oriented X 3, normal motor function, normal sensory function, no focal deficits noted. Psychologic: Affect normal, judgement normal, mood normal. (YASMINE VELASQUEZ APRN) Current Patient Data Vital Signs Vital Signs Date Time Temp Pulse Resp B/P (MAP) Pulse Ox O2 Delivery O2 Flow Rate FiO2 10/16/20 14:10 98.1 93 16 131/93 (106) 99 Room Air Lab Results Laboratory Tests Test 10/16/20 14:27 POC Urine HCG, Qualitative hcg negative (Negative) (YASMINE VELASQUEZ APRN) EKG EKG [] (YASMINE VELASQUEZ APRN) Radiology/Procedures Radiology/Procedures [] (YASMINE VELASQUEZ APRN) Heart Score C/O Chest Pain: No Risk Factors: Risk Factors: DM, Current or recent (<one month) smoker, HTN, HLP, family history of CAD, obesity. Risk Scores: Risk Factors: DM, Current or recent (<one month) smoker, HTN, HLP, family history of CAD, obesity. (YASMINE VELASQUEZ APRN) Course & Med Decision Making Course & Med Decision Making Pertinent Labs and Imaging studies reviewed. (See chart for details) 35-year-old female, vital signs reviewed, presents emergency department inserting a sudden onset of nausea and vomiting while at work. Physical examination concerning for acute allergic reaction. Patient on day 2 of 10-day regimen of oral penicillin given by her dentist. Patient does not recall ever having penicillin allergy however she does not recall ever taking penicillin in the past. Patient was in no respiratory distress, however marked erythema to the face neck ears and anterior chest without raised urticaria or pruritus. Patient was very anxious, moving around the room during triage. We will treat with IV normal saline, 40 mg IV Pepcid, 25 mg IV Benadryl, 10 mg IV Decadron, 4 mg IV ondansetron. Upon reevaluation of the patient, patient states she started to feel better however still feels very nauseated. Will give 10 mg IV Reglan. Upon reevaluation of the patient, patient reports 100% relief, states she feels much better and is ready to go home, is questing a work excuse for tomorrow. Discussed with patient diagnosis of acute allergic reaction, recommended patient take an additional Pepcid and Benadryl this evening, and then again in the morning to help prevent reoccurrence of allergic reaction related to penicillin ingestion. Discussed with patient she now states she is allergic to penicillin. Will change penicillin regimen to clindamycin. Discussed with patient follow- up with primary care for ongoing symptoms, keep her dentist appointment next week, let dentist know that her antibiotic regimen was changed to clindamycin. Patient gave verbal understanding of discharge home instructions, follow-up with primary care soon, keep dental appointment, return to ER precautions or concerns, patient had no further questions or concerns and was discharged home without incident. Diagnosis acute allergic reaction most likely to penicillin. (YASMINE VELASQUEZ APRN) Course & Med Decision Making I oversaw care of patient while in ER and reviewed case with [employer]. I agree with note and plan of care. Patient symptomatically improved, tolerating PO intake and non-toxic on dispo. Electronically signed, Isaias Pruett DO (ISAIAS PRUETT DO) Sherie Disclaimer Dragon Disclaimer This electronic medical record was generated, in whole or in part, using a voice recognition dictation system. (YASMINE VELASQUEZ APRN) Departure Departure: Impression: Primary Impression: Allergic reaction Additional Impression: Dental caries Disposition: 01 DC HOME SELF CARE/HOMELESS Condition: GOOD Referrals: AMNA MULLIGAN Patient Instructions: Drug Allergy Additional Instructions: I believe the symptoms you experienced today were related to your penicillin antibiotic regimen, please do not take any more penicillin, let your dentist know that you had this reaction, also let your dentist know that I have changed your antibiotic regimen to clindamycin. Please take the new antibiotic as directed. Please follow-up with primary care physician soon, if you do not have one or cannot secure an appointment, I have given you a referral for [facility]. Please return to the emergency department for worsening symptoms or other concerns. As we discussed, I would like for you to take an additional [id number] Pepcid tonight before going to bed and in the morning when you wake up, also take a 25 mg [id number] Benadryl tonight before going to bed and again when you wake up in the morning, this will help any recurrence of allergic reaction from returning. I have given you a prescription for Zofran orally dissolving tablet, please take only if needed for nausea and vomiting. EMERGENCY DEPARTMENT GENERAL DISCHARGE INSTRUCTIONS Thank you for coming to [facility] (ED) today and trusting us with you care. We trust that you had a positivie experience in our Emergency Department. If you wish to speak to the department management, you may call the director at [phone]. YOUR FOLLOW UP INSTRUCTIONS ARE FOLLOWS: 1. Do you have a private Doctor? If you do not have a private doctor, please ask for a resource list of physicians or clinics that may be able to assist you with follow up care. 2. The Emergency Physician has interpreted your x-rays. The X-Ray specialist will also review them. If there is a change in the findings, you will be notified in 48 hours when at all possible. 3. A lab test or culture has been done, your results will be reviewed and you will be notified if you need a change in treatment. ADDITIONAL INSTRUCTIONS AND INFORMATION: 1. Your care today has been supervised by a physician who is specially trained in emergency care. Many problems require more than one evaluation for a complete diagnosis and treatment. We recommend that you schedule your follow up appointment as recommended to ensure complete treatment of you illness or injury. If you are unable to obtain follow up care and continue to have a problem, or if your condition worsens, we recommend that you return to the ED. 2. We are not able to safely determine your condition over the phone nor are we able to give sound medical advice over the phone. For these safety reasons, if you call for medical advice we will ask you to come to the ED for further evaluation. 3. If you have any questions regarding these discharge instructions please call the ED at [phone]. SAFETY INFORMATION: In the interest of safety, wellness, and injury prevention; we encourage you to wear your sealbelt, if you smoke; quite smoking, and we encourage family to use a protective helmet for bicycling and other sporting events that present an increased risk for head injury. IF YOUR SYMPTOMS WORSEN OR NEW SYMPTOMS DEVELOP, OR YOU HAVE CONCERNS ABOUT YOUR CONDITION; OR IF YOUR CONDITION WORSENS WHILE YOU ARE WAITING FOR YOUR FOLLOW UP APPOINTMENT; EITHER CONTACT YOUR PRIMARY CARE DOCTOR, THE PHYSICIAN WHOSE NAME AND NUMBER YOU WERE GIVEN, OR RETURN TO THE ED IMMEDIATELY. Scripts Clindamycin Hcl (CLINDAMYCIN HCL) 150 Mg Capsule 3 CAP PO TID for DENTAL ABSCESS for 10 Days, #90 CAP 0 Refills Prov: YASMINE VELASQUEZ APRN 10/16/20 Ondansetron (ONDANSETRON ODT) 4 Mg Tab.rapdis 1 TAB PO PRN Q6-8HRS for NAUSEA, #8 TAB 0 Refills Prov: YASMINE VELASQUEZ APRN 10/16/20 Problem Qualifiers Primary Impression: Allergic reaction Encounter type: initial encounter Qualified Codes: T78.40XA - Allergy, unspecified, initial encounter YASMINE VELASQUEZ ADOPTION MANAGER Oct 16, 2020 14:38 ISAIAS PRUETT DO Oct 16, 2020 19:04
[2020-10-16] MEDS ORDERED: DEXAMETHASONE SOD PHOS 10 MG/ML VIAL. IV ONE (14:45)
[2020-10-16] MEDS ORDERED: IV NORMAL SALINE 1,000ML 1,000 ML IV ONE (14:45)
[2020-10-16] MEDS ORDERED: ONDANSETRON PF 4 MG/2 ML VIAL. IVP ONE (14:45)
[2020-10-16] MEDS ORDERED: FAMOTIDINE 20 MG/2 ML VIAL IVP ONE (14:45)
[2020-10-16] MEDS ORDERED: diphenhydrAMINE 50 MG/ML VIAL IVP ONE (14:45)
[2020-10-16 14:49] LABS: BASO # 0.1 x10^3/uL (0.0-0.2); BASO % 1 % (0-3); EOS # 0.1 x10^3/uL (0.0-0.7); EOS % 1 % (0-3); HEMATOCRIT 44.9 % (36.0-47.0); HEMOGLOBIN 14.9 g/dL (12.0-15.5); LYMPH # 2.9 x10^3/uL (1.0-4.8); LYMPH % 23 % (24-48); MEAN CORPUSCULAR HEMOGLOBIN 30 pg (25-35); MEAN CORPUSCULAR HGB CONC 33 g/dL (31-37); MEAN CORPUSCULAR VOLUME 91 fL (79-100); MONO # 1.4 x10^3/uL (0.0-1.1); MONO % 11 % (0-9); NEUT # 8.2 x10^3uL (1.8-7.7); NEUT % 65 % (31-73); PLATELET COUNT 336 x10^3/uL (140-400); RED BLOOD COUNT 4.95 x10^6/uL (3.50-5.40); RED CELL DISTRIBUTION WIDTH 14.2 % (11.5-14.5); WHITE BLOOD COUNT 12.6 x10^3/uL (4.0-11.0)
[2020-10-16 14:51] LABS: BILIRUBIN,URINE SMALL (NEG); CLARITY,URINE HAZY; COLOR,URINE AMBER; GLUCOSE,URINE NEG (NEG)
[2020-10-16 14:52] LABS: BACTERIA,URINE FEW /HPF (0-FEW); NITRITE,URINE NEG (NEG); RBC,URINE RARE /HPF (0-2); SQUAMOUS EPITHELIAL CELL,UR MOD /LPF; WBC,URINE RARE /HPF (0-4)
[2020-10-16 14:53] LABS: CALCIUM 9.3 mg/dL (8.5-10.1); CREATININE 0.9 mg/dL (0.6-1.0); GFR 71.3; POTASSIUM 3.6 mmol/L (3.5-5.1)
[2020-10-16 14:54] LABS: ALBUMIN 4.3 g/dL (3.4-5.0); ALBUMIN/GLOBULIN RATIO 1.1 (1.0-1.7); TOTAL BILIRUBIN 0.5 mg/dL (0.2-1.0); TOTAL PROTEIN 8.2 g/dL (6.4-8.2)
[2020-10-16] MEDS ORDERED: METOCLOPRAMIDE HCL 10 MG/2 ML VIAL. IVP ONE (15:00)
[2020-10-16 15:50] VITALS: BP 125/81
[2020-10-16] MEDS ORDERED: ONDA4TAB12 PO (16:19)
[2020-10-16] MEDS ORDERED: CLIN150C15 PO (16:19)
== END 2020-10-16 16:22 | disposition home or self-care (01) ==
LOC: ER 14:05
DX: T78.40XA Allergy, unspecified, initial encounter (principal); K02.9 Dental caries, unspecified; R11.2 Nausea with vomiting, unspecified; R10.13 Epigastric pain; J45.909 Unspecified asthma, uncomplicated; Z98.51 Tubal ligation status
CPT/HCPCS: 36415; 80053; 81001; 81025; 83690; 85025; 96361; 96374; 96375; 99285; J1100; J1200; J2060; J2405; J2765; J3490; J7030

== ENCOUNTER 2020-10-18 19:48 | Emergency (ER) | payer SELFPAY ==
[~2020-10-18] VITALS: Ht 167.6 cm; Wt 70.0 kg
[~2020-10-18 19:48] MED LIST changes: +CLIN150C15 PO
--- NOTE | 2020-10-18 20:39 | PHYS DOC ---
Past History Past Medical History: Asthma Past Surgical History: Tonsillectomy, Tubal ligation Alcohol Use: Occasionally Drug Use: None Adult General Chief Complaint Chief Complaint: MULTIPLE COMPLAINTS HPI HPI Patient is a 35-year-old female who presents with abdominal pain. States she has been taking antibiotics for dental pain/infection for a few days and approximately 3 days ago started having some abdominal pain, generalized and crampy, 6 out of 10, dull and achy in nature with no radiation. States she is also had some nausea with 1 or 2 episodes of nonbloody nonbilious emesis. Denies any recent traumas, illnesses, fevers, chest pain, shortness of breath, dysuria, hematuria or diarrhea. Review of Systems Review of Systems Review of systems otherwise unremarkable except noted in HPI Current Medications Current Medications Current Medications Medications (Trade) Dose Ordered Sig/David Start Time Stop Time Status Last Admin Dose Admin Ondansetron HCl (Zofran Odt) 4 mg 1X ONCE 10/18/20 20:45 10/18/20 20:46 10/18/20 20:32 4 MG Allergies Allergies Allergies Coded Allergies Type Severity Reaction Last Updated Verified Penicillins Allergy Intermediate Hives 10/18/20 Yes Physical Exam Physical Exam Constitutional: Well developed, well nourished, no acute distress, non-toxic appearance. [] HENT: Normocephalic, atraumatic, bilateral external ears normal, oropharynx moist, no oral exudates, nose normal. [] Eyes: conjunctiva normal, no discharge. [] Neck: Normal range of motion, no tenderness, supple, no stridor. [] Cardiovascular:Heart rate regular rhythm, no murmur [] Lungs & Thorax: Bilateral breath sounds clear to auscultation [] Abdomen: soft, generalized tender, no masses, no pulsatile masses. [] Skin: Warm, dry, no erythema, no rash. [] Back: no CVA tenderness. [] Extremities: No tenderness, no cyanosis, no clubbing, ROM intact, no edema. [] Neurologic: Alert and oriented X 3, normal motor function, normal sensory function, no focal deficits noted. [] Psychologic: Affect normal, judgement normal, mood normal. [] Current Patient Data Vital Signs Vital Signs Date Time Temp Pulse Resp B/P (MAP) Pulse Ox O2 Delivery O2 Flow Rate FiO2 10/18/20 20:00 98.2 79 20 106/54 (71) 95 Room Air EKG EKG [] Radiology/Procedures Radiology/Procedures [] Exam: CT of abdomen and pelvis without contrast INDICATION: Abdominal pain TECHNIQUE: Sequential axial images through the abdomen and pelvis obtained without IV contrast. Sagittal and coronal reformatted images were reconstructed from the axial data and reviewed. Comparisons: 09/15/2020 FINDINGS: Heart size is normal. No pericardial visualized lung bases are clear. No pleural effusion. Liver, spleen, pancreas, gallbladder and adrenals are unremarkable. No perinephric inflammation or hydronephrosis. No renal or ureteral calculi are identified. Bladder is decompressed not well evaluated. Uterus is not enlarged. No abnormal adnexal mass. Large and small bowel are unremarkable. Appendix is not identified. No free intra-abdominal air or fluid. No obstruction. Abdominal aorta has a normal course caliber. No enlarged abdominal lymph nodes are identified. No suspicious osseous lesions or acute fractures. IMPRESSION: No acute process identified in the abdomen or pelvis. Exposure: One or more of the following in the visualized dose reduction tech niques were utilized for this examination: 1. Automated exposure control 2. Adjustment of the MA and/or KV according to patient size 3. Use of iterative of reconstructive technique Electronically signed by: Sidney Bolden MD (10/18/2020 9:13 PM) [facility] Heart Score C/O Chest Pain: No Risk Factors: Risk Factors: DM, Current or recent (<one month) smoker, HTN, HLP, family history of CAD, obesity. Risk Scores: Risk Factors: DM, Current or recent (<one month) smoker, HTN, HLP, family history of CAD, obesity. Course & Med Decision Making Course & Med Decision Making Patient is a 35-year-old female who presents to the emergency department with a chief complaint of abdominal pain associated with nausea and vomiting Vital signs not concerning. Physical exam noted above. Patient placed on the monitor with IV access established. Given Zofran for nausea fentanyl for pain. Urinalysis not concerning. After treatment with Zofran and fentanyl patient stated all symptoms have resolved. Advised to cease taking the antibiotics as it can cause stomach discomfort including cramping, nausea and diarrhea. Advised to call dentist first thing Tuesday morning to discuss need for tooth extraction versus root canal versus filling. Gave strict return precautions to the ED. Patient grateful, verbalized understanding and agreed with plan of discharge. [] Dragon Disclaimer Dragon Disclaimer This electronic medical record was generated, in whole or in part, using a voice recognition dictation system. Departure Departure: Impression: Primary Impression: Abdominal pain Additional Impression: Nausea & vomiting Disposition: 01 DC HOME SELF CARE/HOMELESS Condition: GOOD Referrals: PCP,NO (PCP) MUSHTAQ SCHULZ MD Patient Instructions: Nausea and Vomiting, [id number] Additional Instructions: Please read all the attached information. As discussed please cease taking the antibiotics prescribed to you as they appear to be upsetting her stomach. Please call your dentist first thing Tuesday morning to update on ED visit, and set up an appointment as soon as you can to discuss need for filling versus root canal versus extraction as discussed. As discussed, please come back to the emergency department immediately with new or concerning symptoms. Problem Qualifiers SHIRA BLACK MD Oct 18, 2020 20:39
[2020-10-18] MEDS ORDERED: ONDANSETRON ODT 4 MG TAB.RAPDIS PO ONE (20:45)
[2020-10-18] MEDS ORDERED: ONDANSETRON PF 4 MG/2 ML VIAL. IVP ONE (21:00)
--- NOTE | 2020-10-18 21:16 | RAD ---
Exam: CT of abdomen and pelvis without contrast INDICATION: Abdominal pain TECHNIQUE: Sequential axial images through the abdomen and pelvis obtained without IV contrast. Sagit alessandro and coronal reformatted images were reconstructed from the axial data and reviewed. Comparisons: 09/15/2020 FINDINGS: Heart size is normal. No pericardial visualized lung bases are clear. No pleural effusion. Liver, spleen, pancreas, gallbladder and adrenals are unremarkable. No perinephric inflammation or hydronephrosis. No renal or ureteral calculi are identified. Bladder is decompressed not well evaluated. Uterus is not enlarged. No abnormal adnexal mass. Large and small bowel are unremarkable. Appendix is not identified. No free intra-abdominal air or fl uid. No obstruction. Abdominal aorta has a normal course caliber. No enlarged abdominal lymph nodes are identified. No suspicious osseous lesions or acute fractures. IMPRESSION: No acute process identified in the abdomen or pelvis. Exposure: One or more of the following in the visualized dose reduction techniques were utilized for this examination: 1. Automated exposure control 2. Adjustment of the MA and/or KV according to patient size 3. Use of iterative of reconstructive technique Electronically signed by: Sidney Bolden MD (10/18/2020 9:13 PM) [facility]
[2020-10-18 21:37] LABS: CLARITY,URINE CLOUDY; COLOR,URINE RED
[2020-10-18 21:38] LABS: BACTERIA,URINE 0 /HPF (0-FEW); RBC,URINE TNTC /HPF (0-2); SQUAMOUS EPITHELIAL CELL,UR FEW /LPF
[2020-10-18 22:00] VITALS: BP 125/81
[2020-10-18] MEDS ORDERED: PROCHLORPERAZINE 10 MG/2 ML VIAL. ONE (22:11)
[2020-10-18] MEDS ORDERED: PROCHLORPERAZINE 10 MG/2 ML VIAL. IV ONE (22:30)
== END 2020-10-18 22:36 | disposition home or self-care (01) ==
LOC: ER 19:48
DX: R10.84 Generalized abdominal pain (principal); R11.2 Nausea with vomiting, unspecified; J45.909 Unspecified asthma, uncomplicated; Z98.51 Tubal ligation status; Z88.0 Allergy status to penicillin
CPT/HCPCS: 74176; 81001; 96374; 96375; 99284; J0780; J2405; J3010; Q0162

== ENCOUNTER 2021-02-07 15:40 | Emergency (ER) | payer SELFPAY ==
[~2021-02-07] VITALS: Ht 170.2 cm; Wt 73.0 kg
[~2021-02-07 15:40] MED LIST changes: -CLIN150C15 PO; +CLIN150C16 PO
[2021-02-07] MEDS ORDERED: ONDANSETRON PF 4 MG/2 ML VIAL. ONE (15:49)
[2021-02-07] MEDS ORDERED: ONDANSETRON PF 4 MG/2 ML VIAL. IVP ONE ×2 (16:00→16:15)
[2021-02-07] MEDS ORDERED: IV NORMAL SALINE 1,000ML 1,000 ML IV ONE (16:00)
--- NOTE | 2021-02-07 16:05 | PHYS DOC ---
Past History Past Medical History: Asthma (TYREE MEZA APRN) Past Surgical History: Cholecystectomy (TYREE MEZA APRN) Alcohol Use: Occasionally Drug Use: None (TYREE MEZA APRN) General Adult EDM: Chief Complaint: ABDOMINAL PAIN HPI: HPI: Patient is a 35-year-old female being seen in the ER today for nausea, vomiting and abdominal pain. Patient does not have her quarantine for COVID-19 yesterday. Both of her kids were positive. Patient is reporting right upper quadrant and epigastric pain. She is 2 weeks post cholecystectomy. Patient denies fever, shortness of breath, cough, chest pain, loss of taste or smell. (TYREE MEZA APRN) Review of Systems: Review of Systems: 14 body systems of the review of systems have been reviewed. See HPI for pertinent positive and negative responses, otherwise all other systems are negative, nonpertinent or noncontributory (TYREE MEZA APRN) Current Medications: Current Meds: Current Medications Medications (Trade) Dose Ordered Sig/David Start Time Stop Time Status Last Admin Dose Admin Ondansetron HCl (Zofran) 4 mg STK-MED ONCE 02/07/21 15:49 02/07/21 15:49 DC (TYREE MEZA APRN) Allergies: Allergies: Allergies Coded Allergies Type Severity Reaction Last Updated Verified Penicillins Allergy Intermediate Hives 10/18/20 Yes (TYREE MEZA APRN) Physical Exam: PE: Constitutional: Well developed, well nourished, no acute distress, non-toxic a ppearance. [] HENT: Normocephalic, atraumatic, bilateral external ears normal, oropharynx moist, no oral exudates, nose normal. [] Eyes: PERRL, conjunctiva normal, no discharge. [] Neck: Normal range of motion, no stridor Cardiovascular:Heart rate regular rhythm, no murmur [] Lungs & Thorax: Bilateral breath sounds clear to auscultation [] Abdomen: Bowel sounds normal, soft, no masses, no pulsatile masses, pain with palpation to right upper quadrant and epigastric region, dry heaving, no active vomiting. [] Skin: Warm, dry, no erythema, no rash. [] Back: No tenderness, no CVA tenderness. [] Extremities: No tenderness, no cyanosis, no clubbing, ROM intact, no edema. [] Neurologic: Alert and oriented X 3, normal motor function, normal sensory function, no focal deficits noted. [] Psychologic: Affect normal, judgement normal, mood normal. [] (TYREE MEZA APRN) Current Patient Data: Labs: Laboratory Tests Test 02/07/21 15:55 02/07/21 18:55 02/07/21 19:25 White Blood Count 14.6 x10^3/uL Red Blood Count 4.90 x10^6/uL Hemoglobin 14.4 g/dL Hematocrit 44.1 % Mean Corpuscular Volume 90 fL Mean Corpuscular Hemoglobin 30 pg Mean Corpuscular Hemoglobin Concent 33 g/dL Red Cell Distribution Width 13.9 % Platelet Count 359 x10^3/uL Neutrophils (%) (Auto) 73 % Lymphocytes (%) (Auto) 16 % Monocytes (%) (Auto) 10 % Eosinophils (%) (Auto) 1 % Basophils (%) (Auto) 0 % Neutrophils # (Auto) 10.6 x10^3uL Lymphocytes # (Auto) 2.4 x10^3/uL Monocytes # (Auto) 1.5 x10^3/uL Eosinophils # (Auto) 0.1 x10^3/uL Basophils # (Auto) 0.1 x10^3/uL Sodium Level 138 mmol/L Potassium Level 3.3 mmol/L Chloride Level 104 mmol/L Carbon Dioxide Level 23 mmol/L Anion Gap 11 Blood Urea Nitrogen 16 mg/dL Creatinine 1.0 mg/dL Estimated GFR (Cockcroft-Gault) 63.1 BUN/Creatinine Ratio 16 Glucose Level 116 mg/dL Calcium Level 9.3 mg/dL Total Bilirubin 0.7 mg/dL Aspartate Amino Transf (AST/SGOT) 22 U/L Alanine Aminotransferase (ALT/SGPT) 32 U/L Alkaline Phosphatase 111 U/L Total Protein 7.9 g/dL Albumin 4.6 g/dL Albumin/Globulin Ratio 1.4 Lipase 51 U/L Urine Collection Type Unknown Urine Color Yellow Urine Clarity Hazy Urine pH 5.5 Urine Specific [place] 1.010 Urine Protein Neg Urine Glucose (UA) Neg mg/dL Urine Ketones (Stick) 15 mg/dL Urine Blood Trace Urine Nitrite Neg Urine Bilirubin Neg Urine Urobilinogen Dipstick 0.2 mg/dL Urine Leukocyte Esterase Neg Urine RBC Rare /HPF Urine WBC 0 /HPF Urine Squamous Epithelial Cells Occ /LPF Urine Bacteria 0 /HPF Urine Mucus Slight /LPF Bedside Urine HCG, Qualitative hcg negative Current Medications Medications (Trade) Dose Ordered Sig/David Route PRN Reason Start Time Stop Time Status Last Admin Dose Admin Ondansetron HCl (Zofran) 4 mg STK-MED ONCE .ROUTE 02/07/21 15:49 02/07/21 15:49 DC Ondansetron HCl (Zofran) 4 mg 1X ONCE IVP 02/07/21 16:00 02/07/21 16:06 DC 02/07/21 16:08 Sodium Chloride 1,000 ml @ 1,000 mls/hr 1X ONCE IV 02/07/21 16:00 02/07/21 16:59 DC 02/07/21 16:13 Fentanyl Citrate (Fentanyl 2ml Vial) 50 mcg 1X ONCE IVP 02/07/21 16:00 02/07/21 16:06 DC 02/07/21 16:09 Ondansetron HCl (Zofran) 4 mg 1X ONCE IVP 02/07/21 16:15 02/07/21 16:16 DC 02/07/21 16:13 Fentanyl Citrate (Fentanyl 2ml Vial) 100 mcg STK-MED ONCE .ROUTE 02/07/21 16:06 02/07/21 16:06 DC Iohexol (Omnipaque 300 Mg/ml) 75 ml 1X ONCE IV 02/07/21 16:15 02/07/21 16:16 DC 02/07/21 16:50 Info (Do NOT chart on this entry -- for MONITORING) 1 each PRN DAILY PRN MC SEE COMMENTS 02/07/21 16:30 02/09/21 16:29 Haloperidol Lactate (Haldol) 2.5 mg 1X ONCE IVP 02/07/21 16:45 02/07/21 16:48 DC 02/07/21 16:53 Vital Signs: Vital Signs Date Time Temp Pulse Resp B/P (MAP) Pulse Ox O2 Delivery O2 Flow Rate FiO2 02/07/21 15:52 97.9 97 22 140/84 96 Room Air (TYREE MEZA APRN) EKG: EKG: EKG performed by ER staff at 1707 shows sinus rhythm, no prolonged QTC, no STEMI as read by Dr. kang at 1718 (TYREE MEZA APRN) Radiology/Procedures: Radiology/Procedures: PROCEDURE: CT ABD PELV W/ IV CONTRST ONLY Exam: CT of abdomen and pelvis with contrast INDICATION: Abdominal pain TECHNIQUE: Sequential axial images through the abdomen and pelvis obtained following the administration of 75 mL of Omni 300 IV contrast. Sagittal and coronal reformatted images were reconstructed from the axial data and reviewed. Exposure: One or more of the following in the visualized dose reduction techniques were utilized for this examination: 1. Automated exposure control 2. Adjustment of the MA and/or KV according to patient size 3. Use of iterative of reconstructive technique Comparisons: 10/18/2020 FINDINGS: Heart size is normal. No pericardial effusion. Visualized lung bases are clear. No pleural effusion. Liver, spleen, pancreas and adrenals are unremarkable. Gallbladder surgically absent. No perinephric inflammation or hydronephrosis. No renal or ureteral calculi are identified. Bladder is decompressed not well evaluated. Uterus is nonenlarged. No abnormal adnexal mass. Colon is predominantly decompressed with questionable diffuse mild wall thickening. Small bowel is unremarkable. There is a moderate length segment of wall thickening involving the proximal small bowel. No free intra-abdominal air or fluid. No obstruction. Abdominal aorta has a normal course and caliber. Abdominal vasculature is patent. No enlarged abdominal lymph nodes are identified. No suspicious osseous lesions or acute fractures. IMPRESSION: Long segment of bowel wall thickening involving the proximal small bowel favored represent enteritis. Additionally there is questionable areas of wall thickening at the colon which is not well evaluated secondary to underdistention. Findings could relate to a enterocolitis. Electronically signed by: Sidney Ortez MD (02/07/2021 5:00 PM) [facility] DICTATED AND SIGNED BY: SIDNEY ORTEZ MD DATE: 02/07/21 5503 CC: IVA KANG DO; TYREE MEZA APRN; PCP,NO ~MTH0 0[] (TYREE MEZA APRN) Heart Score: C/O Chest Pain: No Risk Factors: Risk Factors: DM, Current or recent (<one month) smoker, HTN, HLP, family history of CAD, obesity. Risk Scores: Score 0 - 3: 2.5% MACE over next 6 weeks - Discharge Home Score 4 - 6: 20.3% MACE over next 6 weeks - Admit for Clinical Observation Score 7 - 10: 72.7% MACE over next 6 weeks - Early Invasive Strategies (TYREE MEZA APRN) Course & Med Decision Making: Course & Med Decision Making Pertinent Labs and Imaging studies reviewed. (See chart for details) [] Patient is a 35-year-old female being seen in the ER for nausea, vomiting, abdominal pain. She had positive Covid exposures. Work-up in the ER consisted of blood work, UA CT scan of abdomen. Patient treated with nausea medication, pain medication. She was noted to have leukocytosis. Hypokalemia was noted, this was replaced in the ER. Patient CT scan showed enterocolitis. Patient was treated with an antibiotic in the ER and discharged home with a prescription. Patient able to tolerate fluids in the ER. I discussed with patient all findings and diagnostic testing as well as the need to follow-up with PCP for further evaluation and treatment or return to the ER if any new or worsening symptoms. Strict return precautions were also discussed at length. Patient voiced understanding and agreement with the plan. Patient is hemodynamically stable at the time of disposition. (TYREE MEZA APRN) Dragon Disclaimer: Dragon Disclaimer: This electronic medical record was generated, in whole or in part, using a voice recognition dictation system. (TYREE MEZA APRN) Attending Co-Sign The patient was seen and interviewed as well as examined at the bedside. The chart was reviewed. The case was discussed. Agree with the plan of care. (CARYN SIMMONS DO) Departure Departure: Impression: Primary Impression: Enterocolitis Disposition: 01 HOME / SELF CARE / HOMELESS Condition: GOOD Referrals: PCP,NO (PCP) Patient Instructions: Abdominal Migraine, Nausea and Vomiting Additional Instructions: You were seen in the ER today for abdominal pain with nausea and vomiting. As we discussed, you had a low potassium level, and this was corrected in the ER with a supplement. Please make sure that you are eating potassium rich foods at home like green leafy vegetables. Your CT scan showed enterocolitis. This is inflammation of your intestines. This can be caused by a virus or a bacterial infection. You were treated with a dose of an antibiotic in the ER and will be discharged with an antibiotic. Please make sure that you start and finish this antibiotic completely. You were also discharged home with a prescription for nausea medication that you can take as needed for nausea. Please stick with a clear liquid diet over the next 24 hours. Following the first 24 hours you can eat a bland diet we suggest the brat diet. This is bananas, rice, applesauce, toast. Please avoid spicy, fatty, greasy foods. You were tested for COVID-19. You will receive these test results in 24 to 48 hours. Please self isolate until you receive these results. If you are positive you should quarantine 10 days past your symptom onset. Increase your fluids. You can take Tylenol or ibuprofen for your pain. If you develop severe abdominal pain, uncontrollable nausea or vomiting, high fevers, diarrhea, blood in your vomit or stools, chest pain, shortness of breath please return to the ER immediately. You should follow-up with your primary care provider tomorrow regarding your ER visit today. Scripts Ondansetron Hcl (ZOFRAN) 4 Mg Tablet 4 MG PO TID PRN PRN for NAUSEA for 3 Days, #9 TAB 0 Refills Prov: TYREE MEZA APRN 02/07/21 Azithromycin (AZITHROMYCIN TABLET) 500 Mg Tablet 1 TAB PO DAILY for enterocolitis for 5 Days, #5 TAB 0 Refills Prov: TYREE MEZA APRN 02/07/21 TYREE MEZA APRN Feb 07, 2021 16:05 CARYN SIMMONS DO Feb 08, 2021 05:37
[2021-02-07] MEDS ORDERED: IOHEXOL 300 MG/ML 75 ML VIAL. IV ONE (16:15)
[2021-02-07 16:23] LABS: BASO # 0.1 x10^3/uL (0.0-0.2); BASO % 0 % (0-3); CALCIUM 9.3 mg/dL (8.5-10.1); EOS # 0.1 x10^3/uL (0.0-0.7); EOS % 1 % (0-3); GFR 63.1; HEMATOCRIT 44.1 % (36.0-47.0); HEMOGLOBIN 14.4 g/dL (12.0-15.5); LYMPH # 2.4 x10^3/uL (1.0-4.8); LYMPH % 16 % (24-48); MEAN CORPUSCULAR HEMOGLOBIN 30 pg (25-35); MEAN CORPUSCULAR HGB CONC 33 g/dL (31-37); MEAN CORPUSCULAR VOLUME 90 fL (79-100); MONO # 1.5 x10^3/uL (0.0-1.1); MONO % 10 % (0-9); NEUT # 10.6 x10^3uL (1.8-7.7); NEUT % 73 % (31-73); PLATELET COUNT 359 x10^3/uL (140-400); POTASSIUM 3.3 mmol/L (3.5-5.1); RED CELL DISTRIBUTION WIDTH 13.9 % (11.5-14.5); WHITE BLOOD COUNT 14.6 x10^3/uL (4.0-11.0)
[2021-02-07 16:29] LABS: ALBUMIN 4.6 g/dL (3.4-5.0); ALBUMIN/GLOBULIN RATIO 1.4 (1.0-1.7); TOTAL BILIRUBIN 0.7 mg/dL (0.2-1.0); TOTAL PROTEIN 7.9 g/dL (6.4-8.2)
[2021-02-07] MEDS ORDERED: CONTRAST GIVEN. MC PRN (16:30)
[2021-02-07] MEDS ORDERED: HALOPERIDOL LACT 5 MG/ML VIAL. IVP ONE (16:45)
--- NOTE | 2021-02-07 17:02 | RAD ---
Exam: CT of abdomen and pelvis with contrast INDICATION: Abdominal pain TECHNIQUE: Sequential axial images through the abdomen and pelvis obtained following the administrati on of 75 mL of Omni 300 IV contrast. Sagittal and coronal reformatted images were reconstructed from the axial data and reviewed. Exposure: One or more of the following in the visualized dose reduction techniques were utilized for this examination: 1. Automated exposure control 2. Adjustment of the MA and/or KV according to patient size 3. Use of iterative of reconstructive technique Comparisons: 10/18/2020 FINDINGS: Heart size is normal. No pericardial effusion. Visualized lung bases are clear. No pleural effusion. Liver, spleen, pancreas and adrenals are unremarkable. Gallbladder surgically absent. No perinephric inflammation or hydronephrosis. No renal or ureteral calculi are identified. Bladder is decompressed not well evaluated. Uterus is nonenlarged. No abnormal adnexal mass. Colon is predominantly decompressed with questionable diffuse mild wall thickening. Small bowel is un remarkable. There is a moderate length segment of wall thickening involving the proximal small bowel. No free intra-abdominal air or fluid. No obstruction. Abdominal aorta has a normal course and caliber. Abdominal vasculature is patent. No enlarged abdominal lymph nodes are identified. No suspicious osseous lesions or acute fractures. IMPRESSION: Long segment of bowel wall thickening involving the proximal small bowel favored represent enteritis. Additionally there is questionable areas of wall thickening at the colon which is not well evaluated secondary to underdistention. Findings could relate to a enterocolitis. Electronically signed by: Sidney Bolden MD (02/07/2021 5:00 PM) [facility]
[2021-02-07 19:32] LABS: BACTERIA,URINE 0 /HPF (0-FEW); BILIRUBIN,URINE NEG (NEG); CLARITY,URINE HAZY; COLOR,URINE YELLOW; GLUCOSE,URINE NEG (NEG); NITRITE,URINE NEG (NEG); RBC,URINE RARE /HPF (0-2); SQUAMOUS EPITHELIAL CELL,UR OCC /LPF; UROBILINOGEN,URINE 0.2 mg/dL (0.2 mg/dL); WBC,URINE 0 /HPF (0-4)
[2021-02-07] MEDS ORDERED: ONDA4TAB7 PO (21:13)
[2021-02-07] MEDS ORDERED: AZIT500T4 PO (21:13)
--- NOTE | 2021-02-07 21:25 | EKG ---
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
[2021-02-07] MEDS ORDERED: AZITHROMYCIN 250 MG TABLET. PO ONE (21:30)
[2021-02-07] MEDS ORDERED: POTASSIUM CHLORIDE 20 MEQ TABLET.ER. PO ONE (21:30)
[2021-02-07 21:54] VITALS: BP 137/62
== END 2021-02-07 21:53 | disposition home or self-care (01) ==
LOC: ER 15:40
DX: K52.9 Noninfective gastroenteritis and colitis, unspecified (principal); J45.909 Unspecified asthma, uncomplicated; Z20.822 Contact with and (suspected) exposure to COVID-19; Z90.49 Acquired absence of other specified parts of digestive tract; Z88.0 Allergy status to penicillin
CPT/HCPCS: 36415; 74177; 80053; 81001; 81025; 83690; 85025; 93005; 96361; 96374; 96375; 96376; 99285; C9803; J1630; J2405; J3010; J7030; Q9967; U0003

== ENCOUNTER 2021-02-19 22:20 | Emergency (ER) | payer OTHER ==
[~2021-02-19] VITALS: Ht 170.2 cm; Wt 68.2 kg
[~2021-02-19 22:20] MED LIST changes: +AZIT500T4 PO
--- NOTE | 2021-02-19 22:22 | PHYS DOC ---
Past History Past Medical History: Asthma Past Surgical History: Cholecystectomy Alcohol Use: Occasionally Drug Use: None General Adult HPI: HPI: "I had mny gall bladder out at [facility].. about 7 to 10 days. ago.... I still having Rt. upper abdomen .. right here were they did one of the surgery incisions..." " I tried to follow up with my surgeon but he refused to see me because of my insurance..." Patient is a 35 year old female who presents with above hx and complaints of right upper quadrant abdomen pain. Pain is localized primarily on right mid and upper area. Patient localizes pain to the area of incision. Incisions appear to be well-healed. No erythema. Patient reports no trauma. No severe ill contacts. No history of bad food intake. No recent travel. Patient was Covid negative on 02/07 as well as on the February 14. Patient states she has had very poor intake and associated nausea.. Patient reportedly had a normal stool. Review of Systems: Review of Systems: Constitutional: Denies fever or chills Eyes: Denies change in visual acuity HENT: Denies nasal congestion or sore throat Respiratory: Denies cough or shortness of breath Cardiovascular: Denies chest pain or edema GI: Complains of abdominal pain, nausea. Denies, vomiting, bloody stools or diarrhea : Denies dysuria Musculoskeletal: Denies back pain or joint pain Integument: Denies rash Neurologic: Denies headache, focal weakness or sensory changes Endocrine: Denies polyuria or polydipsia Lymphatic: Denies swollen glands Psychiatric: Denies depression or anxiety Family History: Family History: Noncontributory presentation. Grandmother had gallstones Current Medications: Current Meds: See nursing for home meds Allergies: Allergies: Allergies Coded Allergies Type Severity Reaction Last Updated Verified Penicillins Allergy Intermediate Hives 10/18/20 Yes Physical Exam: PE: Constitutional: Moderate acute distress, non-toxic appearance. [] HENT: Normocephalic, atraumatic, bilateral external ears normal, oropharynx moist, no oral exudates, nose normal. [] Eyes: PERRLA, EOMI, conjunctiva normal, no discharge. [] Neck: Normal range of motion, no tenderness, supple, no stridor. [] Cardiovascular:Heart rate regular rhythm, no murmur [] Lungs & Thorax: Bilateral breath sounds clear to auscultation [] Abdomen: Bowel sounds normal, soft, mild right upper quadrant tenderness, no masses, no pulsatile masses. Has well-healed incision lines. Mild rebound right upper quadrant Skin: Warm, dry, no erythema, no rash. Old self cutting scars. Back: No tenderness, no CVA tenderness. [] Extremities: No tenderness, no cyanosis, no clubbing, ROM intact, no edema. No psoas sign. Neurologic: Alert and oriented X 3, normal motor function, normal sensory function, no focal deficits noted. [] Psychologic: Affect anxious, judgement normal, mood normal. [] EKG: EKG: [] Radiology/Procedures: Radiology/Procedures: [address] [address] IMAGING REPORT Signed PATIENT: FRITZ COLE ACCOUNT: [id number] : 1985 LOCATION: ER AGE: 35 SEX: F EXAM STATUS: REG ER ORD. PHYSICIAN: KAIA KENT MD REASON: OMNI 300 75ML IV.OMNI 240 30ML PO.RT ABD PAIN.HX MELANIE,COLITIS PROCEDURE: CT ABD PELV W/ORAL&IV CONTRAST Study: CT abdomen/pelvis with intravenous contrast Indication: Abdominal pain. Comparison: Most recently on 02/07/2021. Three additional CTs of the abdomen/pelvis have been performed in 2020. Technique: Helical CT imaging performed of the abdomen and pelvis after the intravenous administration of 75 cc Omnipaque 300 contrast. Sagittal and coronal reformats were obtained. One or more of the following individualized dose reduction techniques were utilized for this examination: 1. Automated exposure control 2. Adjustment of the mA and/or kV according to patient size 3. Use of iterative reconstruction technique. Findings: Unremarkable visualized chest. No newly developed abnormality of the liver, pancreas, spleen or adrenal glands. Surgically absent gallbladder. Prominence of the common duct measuring up to approximately 8 mm at the earline hepatis but favored on account of reservoir effect given prominence of the duct on comparison studies. No abnormality seen at the pancreatic head. Redemonstrated and unchanged small cystic focus at the medial left kidney. Symmetric renal parenchymal enhancement. No hydronephrosis. Unremarkable bladder. Within normal limits uterus and ovaries for patient age. Subcutaneous fatty stranding along the right aspect of the vagina is unchanged from 02/07/2021 and 10/18/2020. Incompletely formed stool within the colon. No localized wall thickening or pericolonic inflammation. Normal appendix. Within normal limits course and caliber of the small bowel with positive oral contrast extending into the colon. The stomach is unremarkable/unchanged. Nonaneurysmal aorta. Patent central portal veins and hepatic veins. No lymphadenopathy. No significant volume free fluid. No pneumoperitoneum. No acute or aggressive osseous process. Partial sacralization of L5 with a pseudoarticulation on the right. Mild lumbar levocurvature. Impression: 1. No acute abnormality identified throughout the abdomen or pelvis. 2. Incompletely formed stool within the colon typical of a diarrheal state. No significant wall thickening or inflammatory changes around the bowel to confirm an active enterocolitis. Electronically signed by: YELENA PARIS MD (02/20/2021 1:22 AM) [facility] DICTATED AND SIGNED BY: YELENA PARIS MD DATE: 02/20/21113 CC: KAIA KENT MD; PCP,NO ~MTH0 0 [][place] [id number] IMAGING REPORT Signed PATIENT: FRITZ COLE ACCOUNT: [id number] : 1985 LOCATION: ER AGE: 35 SEX: F EXAM STATUS: REG ER ORD. PHYSICIAN: KAIA KENT MD REASON: pain PROCEDURE: ACUTE ABDOMEN SERIES Exam: Acute abdominal series INDICATION: Pain TECHNIQUE: Frontal view of the chest with upright and supine views the abdomen Comparisons: None FINDINGS: The cardiomediastinal silhouette and pulmonary vessels are within normal limits. The lung and pleural spaces are clear. Air and stool are noted throughout the colon to level the rectum in a nonobstru ctive bowel gas pattern. No suspicious masses or calcifications. Visualized osseous structures are unremarkable. IMPRESSION: 1. No acute cardiopulmonary process. 2. Nonobstructive bowel gas pattern Electronically signed by: Sidney Ortez MD (02/19/2021 11:28 PM) [facility] DICTATED AND SIGNED BY: SIDNEY ORTEZ MD DATE: 02/19/21 7132 CC: KAIA KENT MD; PCP,NO ~MTH0 0 Heart Score: C/O Chest Pain: No Risk Factors: Risk Factors: DM, Current or recent (<one month) smoker, HTN, HLP, family history of CAD, obesity. Risk Scores: Score 0 - 3: 2.5% MACE over next 6 weeks - Discharge Home Score 4 - 6: 20.3% MACE over next 6 weeks - Admit for Clinical Observation Score 7 - 10: 72.7% MACE over next 6 weeks - Early Invasive Strategies Course & Med Decision Making: Course & Med Decision Making Pertinent Labs and Imaging studies reviewed. (See chart for details) Patient stay on a clear fluid diet for the next 24 to 48 hours. No solids. No milk products. Clear fluids only. Allow bowel rest. Follow-up primary care. Follow-up with surgery. Return if any concerns. Take Tylenol and ibuprofen for pain. Follow-up with GI. Consider colonoscopy to evaluate for inflammatory Tory bowel disorder. Impression: 1. Abdomen pain 2. Status post cholecystectomy 3. Colitis 4. Constipation [] Dragon Disclaimer: Dragon Disclaimer: This electronic medical record was generated, in whole or in part, using a voice recognition dictation system. Departure Departure: Referrals: PCP,NO (PCP) Scripts Ondansetron Hcl (ZOFRAN) 4 Mg Tablet 8 MG PO QIDPRN PRN for n, #30 TAB Prov: KAIA KENT MD 02/20/21 Dragon Disclaimer This chart was dictated in whole or in part using Voice Recognition software in a busy, high-work load, and often noisy Emergency Department environment. It may contain unintended and wholly unrecognized errors or omissions. Dragon Disclaimer This chart was dictated in whole or in part using Voice Recognition software in a busy, high-work load, and often noisy Emergency Department environment. It may contain unintended and wholly unrecognized errors or omissions. Dragon Disclaimer This chart was dictated in whole or in part using Voice Recognition software in a busy, high-work load, and often noisy Emergency Department environment. It may contain unintended and wholly unrecognized errors or omissions. KAIA KENT MD Feb 19, 2021 22:22
[2021-02-19 22:26] VITALS: BP 134/87
[2021-02-19 23:18] LABS: BASO % 0 % (0-3); EOS # 0.1 x10^3/uL (0.0-0.7); EOS % 1 % (0-3); HEMATOCRIT 46.5 % (36.0-47.0); HEMOGLOBIN 15.2 g/dL (12.0-15.5); LYMPH # 2.5 x10^3/uL (1.0-4.8); LYMPH % 18 % (24-48); MEAN CORPUSCULAR HEMOGLOBIN 29 pg (25-35); MEAN CORPUSCULAR HGB CONC 33 g/dL (31-37); MEAN CORPUSCULAR VOLUME 89 fL (79-100); MONO # 2.4 x10^3/uL (0.0-1.1); MONO % 17 % (0-9); NEUT # 8.7 x10^3uL (1.8-7.7); NEUT % 64 % (31-73); PLATELET COUNT 335 x10^3/uL (140-400); RED BLOOD COUNT 5.23 x10^6/uL (3.50-5.40); RED CELL DISTRIBUTION WIDTH 13.7 % (11.5-14.5); WHITE BLOOD COUNT 13.6 x10^3/uL (4.0-11.0)
[2021-02-19 23:21] LABS: CALCIUM 9.1 mg/dL (8.5-10.1); GFR 63.1
[2021-02-19 23:23] LABS: BARBITURATES NEG (NEG); BENZODIAZEPINES NEG (NEG); CANNABINOIDS NEG (NEG); COCAINE NEG (NEG); METHADONE NEG (NEG); OPIATES POS (NEG); PHENCYCLIDINE NEG (NEG)
[2021-02-19 23:26] LABS: AMPHETAMINE/METHAMPHETAMINE NEG (NEG)
[2021-02-19 23:27] LABS: ALBUMIN 4.8 g/dL (3.4-5.0); DIRECT BILIRUBIN 0.3 mg/dL (0.0-0.2); TOTAL BILIRUBIN 1.2 mg/dL (0.2-1.0); TOTAL PROTEIN 7.9 g/dL (6.4-8.2)
[2021-02-19] MEDS ORDERED: IV RINGERS SOLUTION,LACTATED 1,000 ML IV SCH (23:30)
[2021-02-19] MEDS ORDERED: MAGNESIUM HYDROXIDE 2,400 MG/30 ML ORAL.SUSP. PO ONE (23:30)
[2021-02-19] MEDS ORDERED: FAMOTIDINE 20 MG/2 ML VIAL IVP ONE (23:30)
[2021-02-19] MEDS ORDERED: ONDANSETRON PF 4 MG/2 ML VIAL. IVP ONE (23:30)
[2021-02-19] MEDS ORDERED: CONTRAST GIVEN. MC PRN (23:30)
[2021-02-19] MEDS ORDERED: KETOROLAC 30 MG/ML VIAL. IVP ONE (23:30)
[2021-02-19 23:31] LABS: BILIRUBIN,URINE MOD (NEG); CLARITY,URINE HAZY; COLOR,URINE YELLOW; GLUCOSE,URINE NEG (NEG); NITRITE,URINE NEG (NEG); UROBILINOGEN,URINE 0.2 mg/dL (0.2 mg/dL)
--- NOTE | 2021-02-19 23:31 | RAD ---
Exam: Acute abdominal series INDICATION: Pain TECHNIQUE: Frontal view of the chest with upright and supine views the abdomen Comparisons: None FINDINGS: The cardiomediastinal silhouette and pulmonary vessels are within normal limits. The lung and pleural spaces are clear. Air and stool are noted throughout the colon to level the rectum in a nonobstructive bowel gas patter n. No suspicious masses or calcifications. Visualized osseous structures are unremarkable. IMPRESSION: 1. No acute cardiopulmonary process. 2. Nonobstructive bowel gas pattern Electronically signed by: Sidney Bolden MD (02/19/2021 11:28 PM) [facility]
[2021-02-19 23:32] LABS: BACTERIA,URINE FEW /HPF (0-FEW); WBC,URINE RARE /HPF (0-4)
[2021-02-19] MEDS ORDERED: IOHEXOL 240 MG/ML 50ML VIAL. ONE (23:37)
[2021-02-19] MEDS ORDERED: IOHEXOL 300 MG/ML 75 ML VIAL. IV ONE (23:45)
--- NOTE | 2021-02-20 01:25 | RAD ---
Study: CT abdomen/pelvis with intravenous contrast Indication: Abdominal pain. Comparison: Most recently on 02/07/2021. Three additional CTs of the abdomen/pelvis have been performe d in 2020. Technique: Helical CT imaging performed of the abdomen and pelvis after the intravenous administratio n of 75 cc Omnipaque 300 contrast. Sagittal and coronal reformats were obtained. One or more of the following individualized dose reduction techniques were utilized for this examinat ion: 1. Automated exposure control 2. Adjustment of the mA and/or kV according to patient size 3. Use of iterative reconstruction technique. Findings: Unremarkable visualized chest. No newly developed abnormality of the liver, pancreas, spleen or adrenal glands. Surgically absent ga llbladder. Prominence of the common duct measuring up to approximately 8 mm at the earline hepatis but favored on account of reservoir effect given prominence of the duct on comparison studies. No abnorma lity seen at the pancreatic head. Redemonstrated and unchanged small cystic focus at the medial left kidney. Symmetric renal parenchyma l enhancement. No hydronephrosis. Unremarkable bladder. Within normal limits uterus and ovaries for patient age. Subcutaneous fatty stranding along the right aspect of the vagina is unchanged from 02/07/2021 and 10/18/2020. Incompletely formed stool within the colon. No localized wall thickening or pericolonic inflammation. Normal appendix. Within normal limits course and caliber of the small bowel with positive oral contr ast extending into the colon. The stomach is unremarkable/unchanged. Nonaneurysmal aorta. Patent central portal veins and hepatic veins. No lymphadenopathy. No significan t volume free fluid. No pneumoperitoneum. No acute or aggressive osseous process. Partial sacralization of L5 with a pseudoarticulation on the right. Mild lumbar levocurvature. Impression: 1. No acute abnormality identified throughout the abdomen or pelvis. 2. Incompletely formed stool within the colon typical of a diarrheal state. No significant wall thic kening or inflammatory changes around the bowel to confirm an active enterocolitis. Electronically signed by: YELENA PARIS MD (02/20/2021 1:22 AM) [facility]
[2021-02-20] MEDS ORDERED: ONDA4TAB7 PO (01:53)
== END 2021-02-20 02:05 | disposition home or self-care (01) ==
LOC: ER 22:20
DX: K52.9 Noninfective gastroenteritis and colitis, unspecified (principal); K59.00 Constipation, unspecified; J45.909 Unspecified asthma, uncomplicated; Z90.49 Acquired absence of other specified parts of digestive tract; Z88.0 Allergy status to penicillin
CPT/HCPCS: 36415; 74022; 74177; 80048; 80076; 80307; 81001; 81025; 82150; 83690; 85025; 96361; 96374; 96375; 99285; J1885; J2405; J3490; J7120; Q9967

== ENCOUNTER 2021-02-26 22:08 | Emergency (ER) | payer OTHER ==
[~2021-02-26] VITALS: Ht 167.6 cm; Wt 69.9 kg
[2021-02-26] MEDS ORDERED: CONTRAST GIVEN. MC PRN (23:45)
--- NOTE | 2021-02-26 23:51 | PHYS DOC ---
Past History Past Medical History: Asthma Past Surgical History: Cholecystectomy, Tonsillectomy, Tubal ligation Alcohol Use: None Drug Use: None General Adult EDM: Chief Complaint: ABDOMINAL PAIN HPI: HPI: 35-year-old female presents to the emergency department complaining of upper abdominal pain, vomiting that occurred this afternoon. She reports that she had a cholecystectomy 3 weeks ago. Today was her first time eating solid food because she has been on a liquid diet. She pizza, shortly after she felt nauseous and vomited and had abdominal pain after that. She reports abdominal pain is a cramping in nature in her upper abdomen and is getting better over time. She believes it is related to her pizza. The patient denies fever, chills, chest pain, shortness of breath, urinary symptoms, cough, recent trauma, or any other complaints. Review of Systems: Review of Systems: Constitutional: Denies fever or chills. Eyes: Denies change in vision, pain. HENT: Denies congestion or sore throat. Respiratory: Denies cough or shortness of breath. Cardiovascular: Denies chest pain or edema. GI: Admits to abdominal pain, nausea, vomiting; denies diarrhea. : Denies change in urination, dysuria. Musculoskeletal: Denies extremity pain, or trauma. Skin: Denies rash, skin change. Neurologic: Denies headache, focal weakness. Psychiatric: Denies depression or anxiety. All other systems reviewed as negative except for what was mentioned in the HPI. Family History: Family History: non contributory Allergies: Allergies: Allergies Coded Allergies Type Severity Reaction Last Updated Verified Penicillins Allergy Intermediate Hives 02/19/21 Yes amoxicillin Allergy Unknown 02/26/21 Yes Physical Exam: PE: Constitutional: No acute distress, non-toxic appearance. Neck: Normal range of motion, supple, no stridor. Cardiovascular: Heart rate regular rhythm. 2+ radial pulses Lungs & Thorax: No respiratory distress, symmetrical expansion. Abdomen: Epigastric tenderness Skin: Warm, dry. Extremities: No tenderness, no cyanosis, ROM intact, no edema. Neurologic: Alert and oriented X 3, normal motor function, normal sensory function, no focal deficits noted. Non ataxic gait. GCS 15. Psychologic: Affect normal, judgment normal, mood normal. Current Patient Data: Labs: Laboratory Tests Test 02/26/21 23:35 02/26/21 23:59 02/27/21 00:04 Urine Collection Type Unknown Urine Color Yellow Urine Clarity Clear Urine pH 7.0 Urine Specific [place] 1.020 Urine Protein Neg (NEG-TRACE) Urine Glucose (UA) Neg mg/dL (NEG) Urine Ketones (Stick) Trace mg/dL (NEG) Urine Blood Neg (NEG) Urine Nitrite Neg (NEG) Urine Bilirubin Neg (NEG) Urine Urobilinogen Dipstick 1.0 mg/dL (0.2 mg/dL) Urine Leukocyte Esterase Neg (NEG) Urine RBC Occ /HPF (0-2) Urine WBC Occ /HPF (0-4) Urine Squamous Epithelial Cells Occ /LPF Urine Bacteria 0 /HPF (0-FEW) White Blood Count 8.2 x10^3/uL (4.0-11.0) Red Blood Count 4.42 x10^6/uL (3.50-5.40) Hemoglobin 13.3 g/dL (12.0-15.5) Hematocrit 40.0 % (36.0-47.0) Mean Corpuscular Volume 91 fL (79-100) Mean Corpuscular Hemoglobin 30 pg (25-35) Mean Corpuscular Hemoglobin Concent 33 g/dL (31-37) Red Cell Distribution Width 13.5 % (11.5-14.5) Platelet Count 264 x10^3/uL (140-400) Neutrophils (%) (Auto) 52 % (31-73) Lymphocytes (%) (Auto) 29 % (24-48) Monocytes (%) (Auto) 13 % (0-9) H Eosinophils (%) (Auto) 4 % (0-3) H Basophils (%) (Auto) 2 % (0-3) Neutrophils # (Auto) 4.3 x10^3uL (1.8-7.7) Lymphocytes # (Auto) 2.4 x10^3/uL (1.0-4.8) Monocytes # (Auto) 1.1 x10^3/uL (0.0-1.1) Eosinophils # (Auto) 0.3 x10^3/uL (0.0-0.7) Basophils # (Auto) 0.1 x10^3/uL (0.0-0.2) Sodium Level 142 mmol/L (136-145) Potassium Level 3.9 mmol/L (3.5-5.1) Chloride Level 106 mmol/L (98-107) Carbon Dioxide Level 28 mmol/L (21-32) Anion Gap 8 (6-14) Blood Urea Nitrogen 7 mg/dL (7-20) Creatinine 0.6 mg/dL (0.6-1.0) Estimated GFR (Cockcroft-Gault) 113.8 BUN/Creatinine Ratio 12 (6-20) Glucose Level 88 mg/dL (70-99) Calcium Level 8.3 mg/dL (8.5-10.1) L Total Bilirubin 0.3 mg/dL (0.2-1.0) Aspartate Amino Transferase (AST) 32 U/L (15-37) Alanine Aminotransferase (ALT) 40 U/L (14-59) Alkaline Phosphatase 82 U/L (46-116) Total Protein 6.4 g/dL (6.4-8.2) Albumin 3.6 g/dL (3.4-5.0) Albumin/Globulin Ratio 1.3 (1.0-1.7) Lipase 89 U/L (73-393) POC Urine HCG, Qualitative hcg negative (Negative) Vital Signs: Vital Signs Date Time Temp Pulse Resp B/P (MAP) Pulse Ox O2 Delivery O2 Flow Rate FiO2 02/27/21 00:33 86 18 125/85 (98) 99 Room Air 02/27/21 00:30 99 Room Air 02/26/21 23:34 98.1 81 18 141/73 (95) 96 Room Air Radiology/Procedures: Radiology/Procedures: CT abdomen and pelvis with contrast PQRS statement: CT scans at this facility use dose reduction including either automated exposure control, iterative reconstructions, and /or weight based radiation dosing via mA and kV modification when appropriate to reduce radiation dose to as low as reasonably achievable. Contrast: 75 mL Omnipaque 300 intravenous contrast. HISTORY: Abdominal pain. Recent cholecystectomy. COMPARISON: CT abdomen and pelvis February 20, 2021 Abdomen findings: Lung bases unremarkable. Shallow disc bulges L4-L5 and L3-L4 lumbar spine. Mild distention of the common bile duct likely related to cholecystectomy, stable. Liver, pancreas, adrenal glands, spleen and right kidney are unremarkable. Left renal upper pole cortical partially exophytic 0.9 cm hypodense lesion measured density of 23 units stable to prior studies, which on precontrast imaging from 2019 and a density of 18 units, this is consistent with a cyst. The appendix is retrocecal and normal. No obstruction or inflammatory changes in GI tract. No abdominal fluid or adenopathy. Pelvis findings: There is soft tissue edema and skin thickening of the right labia which has been present on prior studies back to 2019 although was not ful ly imaged on the prior studies, relative to the current exam which demonstrates the full extent. Subcentimeter ovarian hypodensities likely follicles. Uterus, bladder, rectum and bones are unremarkable. No pelvic fluid or adenopathy. Several low-lying small bowel loops within the pelvis are present. IMPRESSION: 1. No acute process in the abdomen. Appendix is negative. 2. There is abnormal skin thickening and soft tissue edema at the right labia. It is uncertain if this is reflective of chronic postsurgical change or represents a chronic inflammatory process versus malignancy. See above. 3. Subcentimeter hypodensity of the left kidney with a density of 23 units is stable to prior studies, most likely a small cyst. Electronically signed by: Milton Durant MD (02/27/2021 12:52 AM) Heart Score: C/O Chest Pain: No Course & Med Decision Making: Course & Med Decision Making CT scan was ordered secondary to patient's recent surgery, it appears unr emarkable, patient was counseled incidental findings and she will follow with an [employer] ELASTIC ATTACHER. Labs are unremarkable. Her symptoms tonight are likely a result of eating fatty foods. she felt better upon discharge Departure Departure: Impression: Primary Impression: Abdominal pain Disposition: 01 HOME / SELF CARE / HOMELESS Referrals: PCP,SARAH (PCP) Patient Instructions: Abdominal Pain Additional Instructions: You were seen in the emergency department for abdominal pain. Your tests did not show any obvious acute cause of your symptoms and your physical exam was non concerning for a dangerous disease process at this time. This however can change early in a disease course. You must return to the ED if you develop any new or worrisome symptoms for another exam. - Make sure to drink plenty of fluids at home - You may take a gentle laxative such as Miralax (over the counter) for bowel comfort. - Avoid drinking alcohol while you are having abdominal pain as this may worsen symptoms. - Return to the ER if you are not able to tolerate water and/or a normal diet, have increased pain or a change in character of your pain, develop a fever (>100.3 F), have nausea, vomiting and/or diarrhea that is unable to be treated at home, pass out, and/or you are not able to perform you normal daily activity. please follow up with an obgyn regarding a female exam. Your CT today showed your labia was an abnormal size and there was edema behind the labia. Dr. Shiva Bridges Jr, MD [employer]-magistrate judge in [place], [place] Address: [address] [place] [address] [address], [place] [address] IVA KANG DO Feb 26, 2021 23:51
[2021-02-27] MEDS ORDERED: ONDANSETRON PF 4 MG/2 ML VIAL. IVP ONE
[2021-02-27] MEDS ORDERED: IOHEXOL 300 MG/ML 75 ML VIAL. IV ONE
[2021-02-27] MEDS ORDERED: IV NORMAL SALINE 1,000ML 1,000 ML IV SCH
[2021-02-27 00:15] LABS: BASO # 0.1 x10^3/uL (0.0-0.2); BASO % 2 % (0-3); EOS # 0.3 x10^3/uL (0.0-0.7); EOS % 4 % (0-3); HEMOGLOBIN 13.3 g/dL (12.0-15.5); LYMPH # 2.4 x10^3/uL (1.0-4.8); LYMPH % 29 % (24-48); MEAN CORPUSCULAR HEMOGLOBIN 30 pg (25-35); MEAN CORPUSCULAR HGB CONC 33 g/dL (31-37); MEAN CORPUSCULAR VOLUME 91 fL (79-100); MONO # 1.1 x10^3/uL (0.0-1.1); MONO % 13 % (0-9); NEUT # 4.3 x10^3uL (1.8-7.7); NEUT % 52 % (31-73); PLATELET COUNT 264 x10^3/uL (140-400); RED BLOOD COUNT 4.42 x10^6/uL (3.50-5.40); RED CELL DISTRIBUTION WIDTH 13.5 % (11.5-14.5); WHITE BLOOD COUNT 8.2 x10^3/uL (4.0-11.0)
[2021-02-27 00:23] LABS: BACTERIA,URINE 0 /HPF (0-FEW); BILIRUBIN,URINE NEG (NEG); CLARITY,URINE CLEAR; COLOR,URINE YELLOW; GLUCOSE,URINE NEG (NEG); NITRITE,URINE NEG (NEG); RBC,URINE OCC /HPF (0-2); SQUAMOUS EPITHELIAL CELL,UR OCC /LPF; WBC,URINE OCC /HPF (0-4)
[2021-02-27 00:25] LABS: CALCIUM 8.3 mg/dL (8.5-10.1); CREATININE 0.6 mg/dL (0.6-1.0); GFR 113.8; POTASSIUM 3.9 mmol/L (3.5-5.1)
[2021-02-27 00:27] LABS: ALBUMIN 3.6 g/dL (3.4-5.0); ALBUMIN/GLOBULIN RATIO 1.3 (1.0-1.7); TOTAL BILIRUBIN 0.3 mg/dL (0.2-1.0); TOTAL PROTEIN 6.4 g/dL (6.4-8.2)
--- NOTE | 2021-02-27 00:55 | RAD ---
CT abdomen and pelvis with contrast PQRS statement: CT scans at this facility use dose reduction including either automated exposure cont rol, iterative reconstructions, and /or weight based radiation dosing via mA and kV modification when appropriate to reduce radiation dose to as low as reasonably achievable. Contrast: 75 mL Omnipaque 300 intravenous contrast. HISTORY: Abdominal pain. Recent cholecystectomy. COMPARISON: CT abdomen and pelvis February 20, 2021 Abdomen findings: Lung bases unremarkable. Shallow disc bulges L4-L5 and L3-L4 lumbar spine. Mild dis tention of the common bile duct likely related to cholecystectomy, stable. Liver, pancreas, adrenal g lands, spleen and right kidney are unremarkable. Left renal upper pole cortical partially exophytic 0 .9 cm hypodense lesion measured density of 23 units stable to prior studies, which on precontrast ab ging from 2019 and a density of 18 units, this is consistent with a cyst. The appendix is retrocecal and normal. No obstruction or inflammatory changes in GI tract. No abdominal fluid or adenopathy. Pelvis findings: There is soft tissue edema and skin thickening of the right labia which has been pre sent on prior studies back to 2019 although was not fully imaged on the prior studies, relative to th e current exam which demonstrates the full extent. Subcentimeter ovarian hypodensities likely follicl es. Uterus, bladder, rectum and bones are unremarkable. No pelvic fluid or adenopathy. Several low-ly ing small bowel loops within the pelvis are present. IMPRESSION: 1. No acute process in the abdomen. Appendix is negative. 2. There is abnormal skin thickening and soft tissue edema at the right labia. It is uncertain if thi s is reflective of chronic postsurgical change or represents a chronic inflammatory process versus ma lignancy. See above. 3. Subcentimeter hypodensity of the left kidney with a density of 23 units is stable to prior studies , most likely a small cyst. Electronically signed by: Milton Durant MD (02/27/2021 12:52 AM) [facility]
[2021-02-27 01:38] VITALS: BP 134/84
== END 2021-02-27 01:44 | disposition home or self-care (01) ==
LOC: ER 22:08
DX: R10.13 Epigastric pain (principal); R11.2 Nausea with vomiting, unspecified; J45.909 Unspecified asthma, uncomplicated; Z90.49 Acquired absence of other specified parts of digestive tract; Z98.51 Tubal ligation status; Z88.0 Allergy status to penicillin; Z88.1 Allergy status to other antibiotic agents
CPT/HCPCS: 36415; 74177; 80053; 81001; 81025; 83690; 85025; 96361; 96374; 96375; 99285; J2405; J3010; J7030; Q9967

== ENCOUNTER 2021-07-14 16:37 | Emergency (ER) | payer SELFPAY ==
[~2021-07-14] VITALS: Ht 167.6 cm; Wt 69.9 kg
[2021-07-14 17:00] VITALS: BP 107/70
[2021-07-14 18:08] LABS: INFLUENZA A PATIENT NEGATIVE (NEGATIVE); INFLUENZA B PATIENT NEGATIVE (NEGATIVE)
--- NOTE | 2021-07-14 19:42 | RAD ---
Study: XR CHEST 2V Indication: Cough. Congestion. Comparison: 02/19/2021 Findings: No confluent infiltrate, pleural effusion or pneumothorax. Mildly increased lung markings but essenti ally unchanged from the prior. The cardiomediastinal silhouette and farheen are within normal limits. Impression: No radiographic evidence for pneumonia at this time. No significant change from the 02/19/2021 compari son. Electronically signed by: YELENA PARIS MD (07/14/2021 7:39 PM) [facility]
--- NOTE | 2021-07-14 19:54 | PHYS DOC ---
Past History Past Medical History: Asthma (CATE DON) Past Surgical History: Cholecystectomy, Tonsillectomy, Tubal ligation (CATE DON) Alcohol Use: None Drug Use: None (ACTE DON) General Adult EDM: Chief Complaint: COUGH HPI: HPI: Patient is a 35 year old female with history of asthma who presents with 3-day history of nasal congestion, cough, body aches. Patient states that she was vaccinated against COVID-19 in December and she has had no sick contacts. She denies fever, chills, sore throat, sputum production. (CATE DON) Review of Systems: Review of Systems: ROS negative or noncontributory except as mentioned in HPI. (CATE DON) Allergies: Allergies: Allergies Coded Allergies Type Severity Reaction Last Updated Verified Penicillins Allergy Intermediate Hives 02/19/21 Yes amoxicillin Allergy Unknown 02/26/21 Yes (CATE DON) Physical Exam: PE: Constitutional: Well developed, well nourished, no acute distress, non-toxic appearance. HENT: Normocephalic, atraumatic, bilateral external ears without deformity or discharge, oropharynx moist, no oral exudates, lateral turbinates swollen. Eyes: PERRLA, EOMI, conjunctiva normal, no discharge. Neck: Normal range of motion, no tenderness, supple, no stridor. Cardiovascular: Heart rate regular rhythm, no murmur. Lungs & Thorax: Bilateral breath sounds clear to auscultation. Skin: Warm, dry, no erythema, no rash. (CATE DON) Current Patient Data: Labs: Laboratory Tests Test 07/14/21 17:00 Influenza Type A (Rapid) Negative (NEGATIVE) Influenza Type B (Rapid) Negative (NEGATIVE) Vital Signs: Vital Signs Date Time Temp Pulse Resp B/P (MAP) Pulse Ox O2 Delivery O2 Flow Rate FiO2 07/14/21 17:00 98.4 98 18 107/70 (82) 98 Room Air (CATE DON) Radiology/Procedures: Radiology/Procedures: PROCEDURE: CHEST PA & LATERAL Study: XR CHEST 2V Indication: Cough. Congestion. Comparison: 02/19/2021 Findings: No confluent infiltrate, pleural effusion or pneumothorax. Mildly increased lung markings but essentially unchanged from the prior. The cardiomediastinal silhouette and farheen are within normal limits. Impression: No radiographic evidence for pneumonia at this time. No significant change from the 02/19/2021 comparison. Electronically signed by: YELENA PARIS MD (07/14/2021 7:39 PM) [facility] (CATE DON) Heart Score: C/O Chest Pain: No (CATE DON) Course & Med Decision Making: Course & Med Decision Making Pertinent Labs and Imaging studies reviewed. (See chart for details) Patient is a 35-year-old female with history of asthma who presents with nasal congestion, cough, body aches. Patient presentation consistent with upper respiratory infection. Patient is under investigation for COVID-19. She is instructed to quarantine until Covid results become available. Patient was given return precautions. She understands and is agreeable to discharge plan. (CATE DON) Dragon Disclaimer: Dragon Disclaimer: This electronic medical record was generated, in whole or in part, using a voice recognition dictation system. (CATE DON) Attending Co-Sign The patient was seen and interviewed as well as examined at the bedside. The chart was reviewed. The case was discussed. Agree with the plan of care. (CARYN SIMMONS DO) Departure Departure: Impression: Primary Impression: Acute upper respiratory infection Additional Impression: Person under investigation for COVID-19 Disposition: HOME / SELF CARE / HOMELESS Condition: STABLE Referrals: PCP,NO (PCP) Patient Instructions: Upper Respiratory Infection, Adult, [id number] Additional Instructions: Follow the following supportive treatment measures: - Cool mist humidifier with plain water at bedside while you sleep - Mucinex (guaifenesin) per box instructions - Tessalon perles (benzonatate) for cough, especially at night before bed - Alternate ibuprofen and acetaminophen every four hours for body aches/ fever/headache If antibiotics were prescribed, take them as directed. You have been tested for or diagnosed with COVID-19 infection. It is an infection caused by a new type of coronavirus. COVID-19 will cause cold-like or mild flu symptoms in most. It can cause more severe symptoms like problems breathing in some. There is no treatment for COVID-19. The body will clear the infection over time. Self-care will help to ease discomfort. Steps to Take: - Rest as needed. - Choose healthy foods including fruits and vegetables. Drink water throughout the day. - Get plenty of sleep each night. - If you smoke, try to quit. It may ease breathing. - Avoid alcohol. - Keep Others Healthy - The virus can spread to others. Droplets are released every time you sneeze or cough. The droplets can get into the mouth, nose, or eyes of people near you and lead to infection. To lower the chances of spreading COVID-19 to others: Stay at home until your doctor has said it is safe to leave. If you tested positive this will mean staying isolated until both of the following are true: - At least 7 days have passed since the start of illness. - You are free of fever for at least 72 hours without the use of medicine. During this time: - Avoid public areas, events, or transportation. Do not return to work or school until your doctor has said it is safe to do so. - Call ahead if you need to go to a medical center. Let them know you may have COVID-19. It will help them guide you where to go. They may also ask you to wear a facemask when you come to the office. - If you call for emergency medical services, let them know you may have COVID- 19. While at home: - Try to avoid close contact with others. Stay about 6 feet away. - If possible, spend most of your time in a separate room from others. - Use a face mask if you will be in close contact with others such as sharing a room or vehicle. - Have someone wipe down common surfaces in the home. Use household radio division lieutenant every day on areas like doorknobs, counters, or sinks. - Cough or sneeze into a tissue. Throw the tissue away right after use. If a tissue is not available, cough or sneeze into your elbow. - Wash your hands often. Wash them after sneezing or coughing. Use soap and water and wash or at least 20 seconds. Alcohol based hand tank cleaner can be used if soap and water is not available. - Do not prepare food for others. Avoid sharing personal items like forks, spoons, or toothbrushes. - Avoid close contact with pets while you are sick. There is no evidence of the virus passing to pets. This is a safety step until more is known about this virus. - Isolation can be frustrating. Social interaction can help. Keep in touch with friends and family through phone and tech options. You can still interact with others in your home, just keep a safe distance of about 6 feet. Follow-up: - Your doctors office will check in with you to see if there are any changes in your health. - You may be asked to keep track of symptoms to share with them. They will also let you know when you are clear to be in public again. Contact your doctor if your recovery is not going as you expect. Get emergency care if you have problems such as: - Trouble breathing with oxygen saturation <90% - Nonstop chest pain or pressure - Changes in awareness, confusion, or problems waking - Lips or face have bluish color - Worsening of symptoms If you think you have an emergency, call for emergency medical services right away. As taken from [facility] [place] [facility] Benzonatate (BENZONATATE) 100 Mg Capsule 1-2 CAP PO HS for cough, #20 CAP Prov: CATE DON 07/14/21 CATE DON Jul 14, 2021 19:54 CARYN SIMMONS DO Jul 15, 2021 14:42
[2021-07-14] MEDS ORDERED: BENZ-8 PO (19:59)
== END 2021-07-14 20:12 | disposition home or self-care (01) ==
LOC: ER 16:37
DX: J06.9 Acute upper respiratory infection, unspecified (principal); J45.909 Unspecified asthma, uncomplicated; Z20.822 Contact with and (suspected) exposure to COVID-19; Z88.0 Allergy status to penicillin; Z88.1 Allergy status to other antibiotic agents
CPT/HCPCS: 71046; 87804; 99284; C9803; U0003